=== PATIENT | male | born 1985 | race Caucasian/White ===

== ENCOUNTER 2016-11-01 18:45 | Emergency (ER) | payer OTHER ==
--- NOTE | 2016-11-01 21:17 | ED CLINICAL REPORT ---
Clinical Report - Physicians/Mid Levels [facility] [address] [place] [address] 11/01/2016 18:47 Patient: DESEAN SALAS Time Seen: 19:11; initial patient contact, initial documentation, patient care assumed. Arrived- By private vehicle. Historian- patient. HISTORY OF PRESENT ILLNESS Chief Complaint: SORE THROAT. This started about 2 days ago and is still present. It was abrupt in onset and has been constant. Pain described as severe. The patient has had a sore throat. No mouth sores, nasal discharge or congestion, ear pain or toothache. (trouble swallowing today and feels like he might be having trouble getting air in and out c/o runny nose). Similar symptoms previously: None. Recent medical care: Not recently seen/assessed. REVIEW OF SYSTEMS No fever, cough or difficulty breathing. All systems otherwise negative, except as recorded above. PAST HISTORY See nurses notes. SOCIAL HISTORY Light tobacco smoker. No alcohol use or drug use. No recent travel. Is a local resident. FAMILY HISTORY Negative. ADDITIONAL NOTES The nursing notes have been reviewed with agreement regarding the chief complaint, HPI, ROS, PMH and patient medications and allergies. PHYSICAL EXAM Vital Signs: 11/01/2016 19:12 BP: 150/86. HR: 56. RR: 18. O2 saturation: 100%. Temp: 98.6 F. Pain level now: 10/10. Have been reviewed as normal and appear to be correct. Appearance: Alert. No acute distress. Head: Abnormal external inspection. Mild swelling of the left mandible. Tenderness present to percussion/palpation of the sinuses. No facial erythema. No maxillary swelling. Eyes: Pupils equal, round and reactive to light. Conjunctivae and eyelids normal. No conjunctival findings. ENT: Mild drooling present. Ears normal. Nose normal. Pharynx abnormal. Uvula not midline. Moderate left-sided pharyngeal erythema with left tonsillar swelling and abscess (+4 hypertrophy, fluctulance felt with qtip). No pharyngeal vesicles or ulcerations. No right tonsillar exudate, right tonsillar abscess, right tonsillar swelling, right peritonsillitis, left tonsillar exudate or left peritonsillitis. Mildly muffled/hoarse voice. Lips normal. Gums normal. No trismus present. No mouth ulcerations, tonsillar exudate or peritonsillar mass. The mucous membranes are not dry. (pt unable to open his mouth fully due to pain). Neck: Lymphadenopathy. Normal inspection. Mild right anterior neck and marked left anterior neck and mild left submandibular lymphadenopathy present. Trachea midline. Thyroid normal. Neck supple. CVS: Normal heart rate and rhythm. Heart sounds normal. Pulses normal. Respiratory: No respiratory distress. Breath sounds normal. Chest nontender. Skin: Normal skin color. No rash. Normal skin turgor. Extremities: Extremities exhibit normal ROM. Extremities nontender. Neuro: Oriented X 3. No motor deficit. No sensory deficit. LABS, X-RAYS, AND EKG Laboratory Tests: CBC w Diff: (HILARIA: 11/01/2016 19:45) ( MsgRcvd 11/01/2016 20:25) Final results Test Result Flag Units (Reference) WHITE BLOOD COUNT 26.2 *H K/uL (4.5-11.5) CRITICAL RESULTS CALLEDCalled to ALBION 11/01/161957Were 2 patient identifiers used? YWas the result read back? Y RED BLOOD COUNT 5.10 M/uL (4.50-5.90) HEMOGLOBIN 16.1 gm/dL (13.5-17.5) HEMATOCRIT 47.7 % (41.0-53.0) MEAN CELL VOLUME 93 fL (80-100) MEAN CORPUSCULAR HGB 32 pg (26-34) MEAN CORPUSCULAR HGB CONC 34 g/dL (31-37) RED CELL DISTRIBUTION WIDTH 13.3 % (11.6-14.8) PLATELET COUNT 404 H K/uL (150-400) NEUTROPHIL % 80.5 H % (50-75) LYMPH % 11.4 L % (25-40) MONO % 7.3 % (3-14) EOSINOPHIL % 0.6 % (0-4) BASOPHIL % 0.2 % (0-2) POLY % 77 H % (50-75) BAND % 2 % (0-8) LYMPH 14 L % (25-40) MONO 6 % (3-14) EOSINOPHIL % 1 % (0-4) BASOPHIL % 0 % (0-2) METAMYELOCYTE % 0 % (0-1) MYELOCYTE 0 % (0-1) OTHER CELL TYPE 0 RBC MORPHOLOGY NORMAL Lactate, Serum: (HILARIA: 11/01/2016 20:20) ( [facility] [place] 11/01[place]2016 20:50) Final results Test Result Flag Units (Reference) LACTIC ACID 0.8 mmol/L (0.4-2.0) [id number]: (HILARIA: 11/01/2016 19:45) ( [facility] [place] 11/01/2016 20:47) Final results Test Result Flag Units (Reference) PROCALCITONIN < 0.05 ng/mL (0-0.5) PCT Concentration: Interpretation : Risk/option for action PCT <=0.5 ng/mL : Systemic : Low risk forinfection(sepsis): progression to severeis not likely. : systemic infection.Local bacterial : CAUTION-PCT levelsinfection is : below 0.5 ng/mL do notpossible. : exclude an infection,because localizedinfections (withoutsystemic signs) may beassociated with suchlow levels. If PCT ismeasured very earlyafter a bacterialchallenge (usually <6hours), these valuesmay still be low. Inthis case PCT shouldbe re-assessed 6-24hours later. PCT >0.5 and : Systemic infection: Moderate risk for<= 2 ng/mL : (sepsis) is : progression to severepossible, but : systemic infection.other conditions : The patient should beare known to : closely monitoredelevate PCT. : both clinically andby re-assessing PCTwithin 6-24 hours. PCT > 2 ng/mL : Systemic infection: High risk for(sepsis) is likely: progression to severeunless other : systemic infection.causes are known. : PCT >= 10 ng/mL : Important systemic: High likelihood ofinflammatory : severe sepsis orresponse, almost : septic shock.exclusively due to:severe bacterial :sepsis or septic :shock. : CMP: (HILARIA: 11/01/2016 19:45) ( MsgRcvd 11/01/2016 20:19) Final results Test Result Flag Units (Reference) GLUCOSE 112 H mg/dL (70-110) BUN 9 mg/dL (7-18) CREATININE 0.9 mg/dL (0.6-1.3) Estimated GFR >60 mL/min Estimated GFR- >60 mL/min Note: Persistent reduction over 3 months in eGFR<60 mL/min/1.73 m2 defines CKD. Patients with eGFR values>=60 mL/min/1.73 m2 may also have CKD if evidence ofpersistent proteinuria. Additional information may be foundat www.[email or web address].org. SODIUM 140 mmol/L (136-145) POTASSIUM 3.9 mmol/L (3.5-5.1) CHLORIDE 102 mmol/L (98-107) CARBON DIOXIDE 27 mmol/L (21-32) CALCIUM 9.2 mg/dL (8.5-10.1) TOTAL PROTEIN 8.5 H g/dL (6.4-8.2) ALBUMIN 3.7 g/dL (3.3-5.0) BILIRUBIN, TOTAL 0.7 mg/dL (0.0-1.0) ALKALINE PHOSPHATASE 79 U/L (46-116) AST (SGOT) 11 L U/L (15-37) ALT (SGPT) 17 U/L (12-78) . PROGRESS AND PROCEDURES Course of Care: 19:38 11/01/16. ran pt's case by Dr Pacheco asked screening representative to call ent education officer 19:44 11/01/16. Dr Gan's recommendation: iv steroids, 2L iv fluid bolus, iv abx, pain meds and he will see pt in his office tomorrow am, expressed concerns over size of abscess and worried that pt would not do good waiting til morning 2109. Spoke to Dr Gan again re concerns for size of abscess, potential airway compromise, and wanting to admit, and Karen accept, but ent needs to drain it, Dr Gan asked me to drain it, told him no, and neither would Dr. Pacheco, he then agreed to come in 2134. at bedside with Dr Jones, tonsil even bigger and now there is uvula deviation 21:44 11/01/16. Dr Gan, ENT now present 2199. Dr Gan at bedside doing tonsil I&D drainage 2209. discussed dc plan with Dr Gan and pt, pt still using yankur suction, 60ml initial purulent dc thru suction and now at 120ml pt stated he felt better and thanked me 14:40 11/02/16. Called pt, spoke to spouse, wanted to see how pt was doing today, pt is doing remarkably better, he did not get his rx filled due to money, informed her I was adding steroid rx, but if they could get filled whatever they could, that would be best, and with his pcn allergy we were limited on what type of abx we did based on his infection, she verbalized understanding, and thanked me for all the care, phone lost connection at that point Called in prednisone rx to [facility] per her request. 2100. Physical exam findings are worsened. Alert. Oriented X3. No acute distress. Breath sounds normal. No respiratory distress. Skin warm and dry. Oriented X 3. ( abscess appears larger and uvula is now also swollen). Discussed case with on-call health care provider, (call returned 19:43 dr gan). Reviewed test results. Agreed upon treatment plan. Orders dictated to me. Health care provider will see patient in office. Call placed to on-call health care provider call returned 2 Dr Jones expressed my concerns over the abscess and dc'ing pt home, agreed to admit but wants ent in here to drain it tonight. Patient counseled in person regarding the patient's stable condition, test results and diagnosis. 20:55. Differential Diagnosis: Other possible considerations: pharyngitis, mono, tonsillar abscess. Above considerations are based on history, physical exam, reassessment and laboratory data. Differential diagnosis was discussed with patient and patient's spouse. Disposition: Admitted to Acute Care. 21:17. Discharged home in good and improved condition (22:17). Condition: good and stable. CLINICAL IMPRESSION Left peritonsillar abscess with airway obstruction. INSTRUCTIONS Alternate Tylenol (Acetaminophen) and Motrin (Ibuprofen) for fever, temperature greater than 101 degrees orally. Take according to label instructions. Drink plenty of fluids. Warnings: GENERAL WARNINGS: Return or contact your physician immediately if your condition worsens or changes unexpectedly, if not improving as expected, or if other problems arise. Specifically return if problem worsens. Prescription Medications: Zofran 4 mg: Take 1 orally every six hours as needed for nausea/vomiting. Dispense ten (10). No refills. Substitution is permissible. Prednisone 20 mg: for 10 days. Dispense sufficient quantity. No refills. (60mg day 1-3, 40mg day 4-6, 20mg day 7,8,9&10) Cleocin 300 mg: take 1 capsule orally every 6 hours for 7 days. No refills. Substitution is permissible. [place] 5 mg / 325 mg tablets: take 1 orally every 6 hours as needed for pain. Dispense thirty (30). No refill. Motrin 600 mg tablets: take 1 tablet orally every 6 hours as needed for pain or fever. Dispense thirty (30). No refill. Understanding of the discharge instructions verbalized by patient. Follow-up with: Henri Gan MD, ENT, , [facility], [address] [place] [address], [facility], [id number] Follow up even if well. Call for an appointment. Summary of care provided to patient and family. (Electronically signed by Selina Marin A.R.N.P. 11/02/2016 14:44)
--- NOTE | 2016-11-01 21:17 | ED ORDER SUMMARY ---
..... Patient: DESEAN SALAS OrderSheet [facility] VisitID: [id number] [place] [address] 30y, M Registration Date/Time: 11/01/2016 ORDER SHEET Weight: 104.3 kg Allergies: Penicillins GENERAL ORDERS: CBC w Diff Urgent (19:38 11/01/2016 HBivens A.R.N.P.) (Ack 19:43 SRedmond) (19:49 TBowen R.N.) CMP Urgent (19:38 11/01/2016 HBivens A.R.N.P.) (Ack 19:43 SRedmond) (19:49 TBowen R.N.) Lactate, Serum Urgent (19:58 11/01/2016 HBivens A.R.N.P.) (Ack 20:00 SRedmond) (20:26 LMuller) PCT (Procalcitonin) Urgent (19:58 11/01/2016 HBivens A.R.N.P.) (Ack 20:00 SRedmond) (20:26 LMuller) MEDICATION ORDERS: IV FLUIDS: IV NS : initial bolus 1000 mL (1000 mL/hr), then none - (NOW) (19:38 11/01/2016 HBivens A.R.N.P.) (19:50 TBowen R.N.) Decadron IV 20mg (NOW) (19:38 11/01/2016 HBivens A.R.N.P.) (19:58 TBowen R.N.) IV Saline Lock (19:38 11/01/2016 HBivens A.R.N.P.) (19:50 TBowen R.N.) IV NS : initial bolus 1000 mL (1000 mL/hr), then none - (NOW) (19:41 11/01/2016 HBivens A.R.N.P.) (Ack 20:18 EInderbitzen R.N.) (20:32 TBowen R.N.) Clindamycin IV 900 mg/50mL (NOW) (19:42 11/01/2016 HBivens A.R.N.P.) (19:59 TBowen R.N.) Toradol IV 30 mg (NOW) (20:54 11/01/2016 HBivens A.R.N.P.) (21:00 TBowen R.N.) Dilaudid IV 1 mg (HIGH ALERT MEDICATION, NOW) (20:54 11/01/2016 HBivens A.R.N.P.) (21:00 TBowen R.N.) ORDER SHEET NOTES: [Electronically signed by Deborah Ron R.N. (22:53 11/01/2016)] [Electronically signed by Selina MarinN.PAlicia (14:44 11/02/2016)] [Electronically locked/signed by Deborah Ron R.N. (22:53 11/01/2016)]
--- NOTE | 2016-11-01 21:17 | ED NURSING NOTES ---
Clinical Report - Nurses [facility] [address] [place] [address] 11/01/2016 18:47 Patient: DESEAN SALAS TRIAGE Triage time 19:13. Acuity: LEVEL 4. Chief Complaint: SORE THROAT. Alert. --19:15 TongwenB, R.N. 19:12 11/01/16. BP: 150/86. HR: 56. RR: 18. O2 saturation: 100%. Temp: 98.6 F. Pain level now: 05/07. --19:15 DeborahB, R.N. Weight: 104.3 kg. Height/Length: 75 inches. BMI: 28.7. --19:14 TonyaB, R.N. Medications None. --19:13 eDnise R.N. Allergies Penicillins. --19:13 Denise R.N. History Arrived by private vehicle. Historian: patient. Accompanied by family. ( pt complains of swelling in his throat and throat pain). This started yesterday. Treatment RADIO INTERFERENCE EXPERT: None. PAST MEDICAL HX: Immunizations: up-to-date. SOCIAL HX: Smoker- current status unknown. No alcohol use or drug use. No infectious disease exposure. SELF HARM ASSESSMENT: A self harm assessment was performed. The patient answered "no" to the question "Have you recently felt down, depressed, or hopeless?", "Have you noticed less interest or pleasure in doing things?", "Do you have thoughts of harming or killing yourself?", "Are you here because you tried to hurt yourself?", "Have you ever tried to hurt yourself before today?", "Have you recently had thoughts about harming or killing others?" and "Do you have any dangerous items in your possession?". FALL RISK ASSESSMENT: Fall risk assessment completed. No fall risk identified. NUTRITIONAL RISK ASSESSMENT: The nutritional risk assessment revealed no deficiencies. FUNCTIONAL ASSESSMENT: Functional assessment: no impairments noted. LEARNING NEEDS ASSESSMENT: The learning needs assessment revealed no barriers. SKIN INTEGRITY ASSESSMENT: Skin integrity risk assessment completed. No skin integrity risk identified. --19:15 Rhonda Walker. SOCIAL HX: Light tobacco smoker. --21:06 Rhonda Walker. PROBLEMS: Conjunctivitis. Immunizations. Abscess. Healing Abscess. --19:13 Rhonda Walker. ADDITIONAL SURGERIES: Wrist. --19:13 Rhonda Walker. Interventions ID band on patient. To treatment room. --19:15 Lakshmi Walker PHYSICAL ASSESSMENT GENERAL / NEURO / PSYCH: Alert. Oriented X 4. Appears in no acute distress. HEENT: Pupils equal, round and reactive to light. Runny nose. Muffled voice. Mouth within normal limits upon inspection. No dental injury noted. Mucous membranes are pink. RESPIRATORY: Respirations not labored. CVS: Capillary refill less than 2 seconds. SKIN: Skin is warm and dry. Normal skin turgor. --19:16 Rhonda Walker. NURSING PROGRESS NOTES Patient identifiers checked. Call light placed in reach. Side rails up x 1. Bed placed in lowest position. Brakes of bed on. --19:33 Rhonda Walker. Patient gowned. --19:33 Lakshmi Walker 19:50 11/01/2016 Site #1 started via IV in the left antecubital space with an 20g angiocath, with aseptic technique and good blood return; one attempt. Blood drawn: rainbow set. Labeled in the presence of the patient and sent to the lab. --19:50 Lakshmi Walker 19:50 11/01/2016 Started bag #1 1000 mL IV Fluids IV NS (Saline); at 1000 mL/hr over 1 hour(s) via site #1 via dial-a-flow. Allergies verified and confirmed 5 rights. IV patency established. IV site checked: no pain, redness, or swelling. IV flushed thoroughly pre- and post-medication administration. --19:50 Lakshmi Walker 19:58 11/01/2016 Decadron IVP 20 mg given over 2 minute(s) via site #1. Allergies verified and confirmed 5 rights. IV patency established. IV site checked: no pain, redness, or swelling. IV flushed thoroughly pre- and post-medication administration. IVP given by RN. --19:58 Lakshmi Walker 19:59 11/01/2016 Started 900 mg of Clindamycin IVPB; at 50 mL/hr over 30 minute(s) via site #1 via IV pump. Allergies verified and confirmed 5 rights. IV patency established. IV site checked: no pain, redness, or swelling. IV flushed thoroughly pre- and post-medication administration. --19:59 Lakshmi Walker Critical value relayed to ED by akosua. Critical value received by vinny. WBC: 26.2. Critical value read back. Verified lab result and patient ID. PA notifed of critical value. Orders were received. --20:02 Lakshmi Walker 20:31 11/01/2016 IV Fluids IV NS Discontinued: bag #1 infused upon discharge. Total amount infused: 1000 mL. --20:31 Kimberly Palacio R.N. 20:32 11/01/2016 Started bag #1 1000 mL IV Fluids IV NS (Saline); at 1000 mL/hr over 1 hour(s) via site #1 via IV pump. Allergies verified and confirmed 5 rights. IV patency established. IV site checked: no pain, redness, or swelling. IV flushed thoroughly pre- and post-medication administration. --20:32 Lakshmi Walker 20:33 11/01/2016 Clindamycin IVPB Discontinued: bag #1 completed. Total amount infused: 50 mL. IV patency established. IV site checked: no pain, redness, or swelling. IV flushed thoroughly. --20:33 Lakshmi Walker 20:59 11/01/2016 IV Fluids IV NS Discontinued: bag #2 completed. Total amount infused: 1000 mL. IV patency established. IV site checked: no pain, redness, or swelling. IV flushed thoroughly. --20:59 Lakshmi Walker 21:00 11/01/2016 Toradol IVP 30 mg given over 2 minute(s) via site #1. Allergies verified and confirmed 5 rights. IV patency established. IV site checked: no pain, redness, or swelling. IV flushed thoroughly pre- and post-medication administration. IVP given by RN. --21:00 Lakshmi Walker 21:00 11/01/2016 Dilaudid (HYDROmorphone HCl PF) IVP 1 mg given. via site #1. Allergies verified, confirmed 5 rights and sedative warning given to the patient and patient's family. IV patency established. IV site checked: no pain, redness, or swelling. IV flushed thoroughly pre- and post-medication administration. IVP given by RN. --21:00 Lakshmi Walker Reassessment after fluids administered. He is resting quietly. --21:07 Lakshmi Walker 21:23 11/01/16. BP: 149/85. HR: 76. RR: 16. O2 saturation: 97%. Pain level now: 5/10. --21:24 Lakshmi Walker Patient ID band checked for patient name and birthdate: patient confirmed. Throat swab obtained for culture; labeled in the presence of the patient and sent to lab. --22:03 Lakshmi Walker ( assisted MD with lancing of tonsil abcess). --22:04 Lakshmi Walker DISPOSITION / DISCHARGE 22:51 11/01/2016 Site #1 removed upon discharge. Catheter intact. Bandaid applied. --22:52 Lakshmi Walker Departure time: 22:53. Condition at departure: improved. No learning barriers present. Discharge instructions provided and reviewed with the patient. Reviewed medication(s) side effects, precautions, dosing and course information. Prescription(s) given to the patient. Reviewed referral to an ear, nose, and throat specialist (daytime caregiver). Follow up contact number. Patient verbalized understanding. Written instructions provided in Vietnamese. No warning instructions, diet instructions, activity restrictions, note given or stop smoking instructions. The patient was discharged by the physician land surveyor assistant. He was discharged home and accompanied by parent. He left the Emergency Department ambulatory and via private vehicle. Family member driving. FALL RISK ASSESSMENT: Fall risk assessment completed. No fall risk identified. --22:53 Lakshmi Walker 22:51 11/01/16. BP: 128/94. HR: 71. RR: 18. O2 saturation: 100%. Temp: 98.4 F. Pain level now: 4/10. --22:53 Lakshmi Walker Locked/Released at 11/01/2016 22:53 by Lakshmi Walker
--- NOTE | 2016-11-01 21:17 | ED NURSING NOTES ---
Clinical Report - Nurses [facility] [address] [place] [address] 11/01/2016 18:47 Patient: DESEAN SALAS TRIAGE Triage time 19:13. Acuity: LEVEL 4. Chief Complaint: SORE THROAT. Alert. --19:15 TongwenB, R.N. 19:12 11/01/16. BP: 150/86. HR: 56. RR: 18. O2 saturation: 100%. Temp: 98.6 F. Pain level now: 05/07. --19:15 DeborahB, R.N. Weight: 104.3 kg. Height/Length: 75 inches. BMI: 28.7. --19:14 TonyaB, R.N. Medications None. --19:13 Denise R.N. Allergies Penicillins. --19:13 Denise R.N. History Arrived by private vehicle. Historian: patient. Accompanied by family. ( pt complains of swelling in his throat and throat pain). This started yesterday. Treatment IRRIGATOR GRAVITY FLOW: None. PAST MEDICAL HX: Immunizations: up-to-date. SOCIAL HX: Smoker- current status unknown. No alcohol use or drug use. No infectious disease exposure. SELF HARM ASSESSMENT: A self harm assessment was performed. The patient answered "no" to the question "Have you recently felt down, depressed, or hopeless?", "Have you noticed less interest or pleasure in doing things?", "Do you have thoughts of harming or killing yourself?", "Are you here because you tried to hurt yourself?", "Have you ever tried to hurt yourself before today?", "Have you recently had thoughts about harming or killing others?" and "Do you have any dangerous items in your possession?". FALL RISK ASSESSMENT: Fall risk assessment completed. No fall risk identified. NUTRITIONAL RISK ASSESSMENT: The nutritional risk assessment revealed no deficiencies. FUNCTIONAL ASSESSMENT: Functional assessment: no impairments noted. LEARNING NEEDS ASSESSMENT: The learning needs assessment revealed no barriers. SKIN INTEGRITY ASSESSMENT: Skin integrity risk assessment completed. No skin integrity risk identified. --19:15 Rhonda Walker. SOCIAL HX: Light tobacco smoker. --21:06 Rhonda Walker. PROBLEMS: Conjunctivitis. Immunizations. Abscess. Healing Abscess. --19:13 Rhonda Walker. ADDITIONAL SURGERIES: Wrist. --19:13 Rhonda Walker. Interventions ID band on patient. To treatment room. --19:15 Lakshmi Walker PHYSICAL ASSESSMENT GENERAL / NEURO / PSYCH: Alert. Oriented X 4. Appears in no acute distress. HEENT: Pupils equal, round and reactive to light. Runny nose. Muffled voice. Mouth within normal limits upon inspection. No dental injury noted. Mucous membranes are pink. RESPIRATORY: Respirations not labored. CVS: Capillary refill less than 2 seconds. SKIN: Skin is warm and dry. Normal skin turgor. --19:16 Rhonda Walker. NURSING PROGRESS NOTES Patient identifiers checked. Call light placed in reach. Side rails up x 1. Bed placed in lowest position. Brakes of bed on. --19:33 Rhonda Walker. Patient gowned. --19:33 Lakshmi Walker 19:50 11/01/2016 Site #1 started via IV in the left antecubital space with an 20g angiocath, with aseptic technique and good blood return; one attempt. Blood drawn: rainbow set. Labeled in the presence of the patient and sent to the lab. --19:50 Lakshmi Walker 19:50 11/01/2016 Started bag #1 1000 mL IV Fluids IV NS (Saline); at 1000 mL/hr over 1 hour(s) via site #1 via dial-a-flow. Allergies verified and confirmed 5 rights. IV patency established. IV site checked: no pain, redness, or swelling. IV flushed thoroughly pre- and post-medication administration. --19:50 Lakshmi Walker 19:58 11/01/2016 Decadron IVP 20 mg given over 2 minute(s) via site #1. Allergies verified and confirmed 5 rights. IV patency established. IV site checked: no pain, redness, or swelling. IV flushed thoroughly pre- and post-medication administration. IVP given by RN. --19:58 Lakshmi Walker 19:59 11/01/2016 Started 900 mg of Clindamycin IVPB; at 50 mL/hr over 30 minute(s) via site #1 via IV pump. Allergies verified and confirmed 5 rights. IV patency established. IV site checked: no pain, redness, or swelling. IV flushed thoroughly pre- and post-medication administration. --19:59 Lakshmi Walker Critical value relayed to ED by akosua. Critical value received by vinny. WBC: 26.2. Critical value read back. Verified lab result and patient ID. PA notifed of critical value. Orders were received. --20:02 Lakshmi Walker 20:31 11/01/2016 IV Fluids IV NS Discontinued: bag #1 infused upon discharge. Total amount infused: 1000 mL. --20:31 Kimberly Palacio R.N. 20:32 11/01/2016 Started bag #1 1000 mL IV Fluids IV NS (Saline); at 1000 mL/hr over 1 hour(s) via site #1 via IV pump. Allergies verified and confirmed 5 rights. IV patency established. IV site checked: no pain, redness, or swelling. IV flushed thoroughly pre- and post-medication administration. --20:32 Lakshmi Walker 20:33 11/01/2016 Clindamycin IVPB Discontinued: bag #1 completed. Total amount infused: 50 mL. IV patency established. IV site checked: no pain, redness, or swelling. IV flushed thoroughly. --20:33 Lakshmi Walker 20:59 11/01/2016 IV Fluids IV NS Discontinued: bag #2 completed. Total amount infused: 1000 mL. IV patency established. IV site checked: no pain, redness, or swelling. IV flushed thoroughly. --20:59 Lakshmi Walker 21:00 11/01/2016 Toradol IVP 30 mg given over 2 minute(s) via site #1. Allergies verified and confirmed 5 rights. IV patency established. IV site checked: no pain, redness, or swelling. IV flushed thoroughly pre- and post-medication administration. IVP given by RN. --21:00 Lakshmi Walker 21:00 11/01/2016 Dilaudid (HYDROmorphone HCl PF) IVP 1 mg given. via site #1. Allergies verified, confirmed 5 rights and sedative warning given to the patient and patient's family. IV patency established. IV site checked: no pain, redness, or swelling. IV flushed thoroughly pre- and post-medication administration. IVP given by RN. --21:00 Lakshmi Walker Reassessment after fluids administered. He is resting quietly. --21:07 Lakshmi Walker 21:23 11/01/16. BP: 149/85. HR: 76. RR: 16. O2 saturation: 97%. Pain level now: 5/10. --21:24 Lakshmi Walker Patient ID band checked for patient name and birthdate: patient confirmed. Throat swab obtained for culture; labeled in the presence of the patient and sent to lab. --22:03 Lakshmi Walker ( assisted MD with lancing of tonsil abcess). --22:04 Laksmhi Walker DISPOSITION / DISCHARGE 22:51 11/01/2016 Site #1 removed upon discharge. Catheter intact. Bandaid applied. --22:52 Lakshmi Walker Departure time: 22:53. Condition at departure: improved. No learning barriers present. Discharge instructions provided and reviewed with the patient. Reviewed medication(s) side effects, precautions, dosing and course information. Prescription(s) given to the patient. Reviewed referral to an ear, nose, and throat specialist (senior court office assistant). Follow up contact number. Patient verbalized understanding. Written instructions provided in [place]. No warning instructions, diet instructions, activity restrictions, note given or stop smoking instructions. The patient was discharged by the physician personnel security assistant. He was discharged home and accompanied by parent. He left the Emergency Department ambulatory and via private vehicle. Family member driving. FALL RISK ASSESSMENT: Fall risk assessment completed. No fall risk identified. --22:53 Lakshmi Walker 22:51 11/01/16. BP: 128/94. HR: 71. RR: 18. O2 saturation: 100%. Temp: 98.4 F. Pain level now: 4/10. --22:53 Lakshmi Walker Locked/Released at 11/01/2016 22:53 by Lakshmi Walker
--- NOTE | 2016-11-01 21:17 | ED ORDER SUMMARY ---
..... Patient: DESEAN SALAS OrderSheet [facility] VisitID: [id number] [place] [address] 30y, M Registration Date/Time: 11/01/2016 ORDER SHEET Weight: 104.3 kg Allergies: Penicillins GENERAL ORDERS: CBC w Diff Urgent (19:38 11/01/2016 HBivens A.R.N.P.) (Ack 19:43 SRedmond) (19:49 TBowen R.N.) CMP Urgent (19:38 11/01/2016 HBivens A.R.N.P.) (Ack 19:43 SRedmond) (19:49 TBowen R.N.) Lactate, Serum Urgent (19:58 11/01/2016 HBivens A.R.N.P.) (Ack 20:00 SRedmond) (20:26 LMuller) PCT (Procalcitonin) Urgent (19:58 11/01/2016 HBivens A.R.N.P.) (Ack 20:00 SRedmond) (20:26 LMuller) MEDICATION ORDERS: IV FLUIDS: IV NS : initial bolus 1000 mL (1000 mL/hr), then none - (NOW) (19:38 11/01/2016 HBivens A.R.N.P.) (19:50 TBowen R.N.) Decadron IV 20mg (NOW) (19:38 11/01/2016 HBivens A.R.N.P.) (19:58 TBowen R.N.) IV Saline Lock (19:38 11/01/2016 HBivens A.R.N.P.) (19:50 TBowen R.N.) IV NS : initial bolus 1000 mL (1000 mL/hr), then none - (NOW) (19:41 11/01/2016 HBivens A.R.N.P.) (Ack 20:18 EInderbitzen R.N.) (20:32 TBowen R.N.) Clindamycin IV 900 mg/50mL (NOW) (19:42 11/01/2016 HBivens A.R.N.P.) (19:59 TBowen R.N.) Toradol IV 30 mg (NOW) (20:54 11/01/2016 HBivens A.R.N.P.) (21:00 TBowen R.N.) Dilaudid IV 1 mg (HIGH ALERT MEDICATION, NOW) (20:54 11/01/2016 HBivens A.R.N.P.) (21:00 TBowen R.N.) ORDER SHEET NOTES: [Electronically signed by Deborah Ron R.N. (22:53 11/01/2016)] [Electronically signed by Selina MarinN.PAlicia (14:44 11/02/2016)] [Electronically locked/signed by Deborah Ron R.N. (22:53 11/01/2016)]
--- NOTE | 2016-11-01 21:17 | ED CLINICAL REPORT ---
Clinical Report - Physicians/Mid Levels [facility] [address] [place] [address] 11/01/2016 18:47 Patient: DESEAN SALAS Time Seen: 19:11; initial patient contact, initial documentation, patient care assumed. Arrived- By private vehicle. Historian- patient. HISTORY OF PRESENT ILLNESS Chief Complaint: SORE THROAT. This started about 2 days ago and is still present. It was abrupt in onset and has been constant. Pain described as severe. The patient has had a sore throat. No mouth sores, nasal discharge or congestion, ear pain or toothache. (trouble swallowing today and feels like he might be having trouble getting air in and out c/o runny nose). Similar symptoms previously: None. Recent medical care: Not recently seen/assessed. REVIEW OF SYSTEMS No fever, cough or difficulty breathing. All systems otherwise negative, except as recorded above. PAST HISTORY See nurses notes. SOCIAL HISTORY Light tobacco smoker. No alcohol use or drug use. No recent travel. Is a local resident. FAMILY HISTORY Negative. ADDITIONAL NOTES The nursing notes have been reviewed with agreement regarding the chief complaint, HPI, ROS, PMH and patient medications and allergies. PHYSICAL EXAM Vital Signs: 11/01/2016 19:12 BP: 150/86. HR: 56. RR: 18. O2 saturation: 100%. Temp: 98.6 F. Pain level now: 10/10. Have been reviewed as normal and appear to be correct. Appearance: Alert. No acute distress. Head: Abnormal external inspection. Mild swelling of the left mandible. Tenderness present to percussion/palpation of the sinuses. No facial erythema. No maxillary swelling. Eyes: Pupils equal, round and reactive to light. Conjunctivae and eyelids normal. No conjunctival findings. ENT: Mild drooling present. Ears normal. Nose normal. Pharynx abnormal. Uvula not midline. Moderate left-sided pharyngeal erythema with left tonsillar swelling and abscess (+4 hypertrophy, fluctulance felt with qtip). No pharyngeal vesicles or ulcerations. No right tonsillar exudate, right tonsillar abscess, right tonsillar swelling, right peritonsillitis, left tonsillar exudate or left peritonsillitis. Mildly muffled/hoarse voice. Lips normal. Gums normal. No trismus present. No mouth ulcerations, tonsillar exudate or peritonsillar mass. The mucous membranes are not dry. (pt unable to open his mouth fully due to pain). Neck: Lymphadenopathy. Normal inspection. Mild right anterior neck and marked left anterior neck and mild left submandibular lymphadenopathy present. Trachea midline. Thyroid normal. Neck supple. CVS: Normal heart rate and rhythm. Heart sounds normal. Pulses normal. Respiratory: No respiratory distress. Breath sounds normal. Chest nontender. Skin: Normal skin color. No rash. Normal skin turgor. Extremities: Extremities exhibit normal ROM. Extremities nontender. Neuro: Oriented X 3. No motor deficit. No sensory deficit. LABS, X-RAYS, AND EKG Laboratory Tests: CBC w Diff: (HILARIA: 11/01/2016 19:45) ( MsgRcvd 11/01/2016 20:25) Final results Test Result Flag Units (Reference) WHITE BLOOD COUNT 26.2 *H K/uL (4.5-11.5) CRITICAL RESULTS CALLEDCalled to [facility] 11/01/161957Were 2 patient identifiers used? YWas the result read back? Y RED BLOOD COUNT 5.10 M/uL (4.50-5.90) HEMOGLOBIN 16.1 gm/dL (13.5-17.5) HEMATOCRIT 47.7 % (41.0-53.0) MEAN CELL VOLUME 93 fL (80-100) MEAN CORPUSCULAR HGB 32 pg (26-34) MEAN CORPUSCULAR HGB CONC 34 g/dL (31-37) RED CELL DISTRIBUTION WIDTH 13.3 % (11.6-14.8) PLATELET COUNT 404 H K/uL (150-400) NEUTROPHIL % 80.5 H % (50-75) LYMPH % 11.4 L % (25-40) MONO % 7.3 % (3-14) EOSINOPHIL % 0.6 % (0-4) BASOPHIL % 0.2 % (0-2) POLY % 77 H % (50-75) BAND % 2 % (0-8) LYMPH 14 L % (25-40) MONO 6 % (3-14) EOSINOPHIL % 1 % (0-4) BASOPHIL % 0 % (0-2) METAMYELOCYTE % 0 % (0-1) MYELOCYTE 0 % (0-1) OTHER CELL TYPE 0 RBC MORPHOLOGY NORMAL Lactate, Serum: (HILARIA: 11/01/2016 20:20) ( [facility] 11/01/2016 20:50) Final results Test Result Flag Units (Reference) LACTIC ACID 0.8 mmol/L (0.4-2.0) [id number]: (HILARIA: 11/01/2016 19:45) ( [facility] [place] 11/01/2016 20:47) Final results Test Result Flag Units (Reference) PROCALCITONIN < 0.05 ng/mL (0-0.5) PCT Concentration: Interpretation : Risk/option for action PCT <=0.5 ng/mL : Systemic : Low risk forinfection(sepsis): progression to severeis not likely. : systemic infection.Local bacterial : CAUTION-PCT levelsinfection is : below 0.5 ng/mL do notpossible. : exclude an infection,because localizedinfections (withoutsystemic signs) may beassociated with suchlow levels. If PCT ismeasured very earlyafter a bacterialchallenge (usually <6hours), these valuesmay still be low. Inthis case PCT shouldbe re-assessed 6-24hours later. PCT >0.5 and : Systemic infection: Moderate risk for<= 2 ng/mL : (sepsis) is : progression to severepossible, but : systemic infection.other conditions : The patient should beare known to : closely monitoredelevate PCT. : both clinically andby re-assessing PCTwithin 6-24 hours. PCT > 2 ng/mL : Systemic infection: High risk for(sepsis) is likely: progression to severeunless other : systemic infection.causes are known. : PCT >= 10 ng/mL : Important systemic: High likelihood ofinflammatory : severe sepsis orresponse, almost : septic shock.exclusively due to:severe bacterial :sepsis or septic :shock. : CMP: (HILARIA: 11/01/2016 19:45) ( MsgRcvd 11/01/2016 20:19) Final results Test Result Flag Units (Reference) GLUCOSE 112 H mg/dL (70-110) BUN 9 mg/dL (7-18) CREATININE 0.9 mg/dL (0.6-1.3) Estimated GFR >60 mL/min Estimated GFR- >60 mL/min Note: Persistent reduction over 3 months in eGFR<60 mL/min/1.73 m2 defines CKD. Patients with eGFR values>=60 mL/min/1.73 m2 may also have CKD if evidence ofpersistent proteinuria. Additional information may be foundat www.kidney.org. SODIUM 140 mmol/L (136-145) POTASSIUM 3.9 mmol/L (3.5-5.1) CHLORIDE 102 mmol/L (98-107) CARBON DIOXIDE 27 mmol/L (21-32) CALCIUM 9.2 mg/dL (8.5-10.1) TOTAL PROTEIN 8.5 H g/dL (6.4-8.2) ALBUMIN 3.7 g/dL (3.3-5.0) BILIRUBIN, TOTAL 0.7 mg/dL (0.0-1.0) ALKALINE PHOSPHATASE 79 U/L (46-116) AST (SGOT) 11 L U/L (15-37) ALT (SGPT) 17 U/L (12-78) . PROGRESS AND PROCEDURES Course of Care: 19:38 11/01/16. ran pt's case by Dr Pacheco asked product managent intern to call ent inside solar sales consultant 19:44 11/01/16. Dr Gan's recommendation: iv steroids, 2L iv fluid bolus, iv abx, pain meds and he will see pt in his office tomorrow am, expressed concerns over size of abscess and worried that pt would not do good waiting til morning 2109. Spoke to Dr Gan again re concerns for size of abscess, potential airway compromise, and wanting to admit, and Karen accept, but ent needs to drain it, Dr Gan asked me to drain it, told him no, and neither would Dr. Pacheco, he then agreed to come in 2134. at bedside with Dr Jones, tonsil even bigger and now there is uvula deviation 21:44 11/01/16. Dr Gan, ENT now present 2199. Dr Gan at bedside doing tonsil I&D drainage 2209. discussed dc plan with Dr Gan and pt, pt still using yankur suction, 60ml initial purulent dc thru suction and now at 120ml pt stated he felt better and thanked me 14:40 11/02/16. Called pt, spoke to spouse, wanted to see how pt was doing today, pt is doing remarkably better, he did not get his rx filled due to money, informed her I was adding steroid rx, but if they could get filled whatever they could, that would be best, and with his pcn allergy we were limited on what type of abx we did based on his infection, she verbalized understanding, and thanked me for all the care, phone lost connection at that point Called in prednisone rx to [facility] per her request. 2100. Physical exam findings are worsened. Alert. Oriented X3. No acute distress. Breath sounds normal. No respiratory distress. Skin warm and dry. Oriented X 3. ( abscess appears larger and uvula is now also swollen). Discussed case with on-call health care provider, (call returned 19:43 dr gan). Reviewed test results. Agreed upon treatment plan. Orders dictated to me. Health care provider will see patient in office. Call placed to on-call health care provider call returned 0 Dr Jones expressed my concerns over the abscess and dc'ing pt home, agreed to admit but wants ent in here to drain it tonight. Patient counseled in person regarding the patient's stable condition, test results and diagnosis. 20:55. Differential Diagnosis: Other possible considerations: pharyngitis, mono, tonsillar abscess. Above considerations are based on history, physical exam, reassessment and laboratory data. Differential diagnosis was discussed with patient and patient's spouse. Disposition: Admitted to Acute Care. 21:17. Discharged home in good and improved condition (22:17). Condition: good and stable. CLINICAL IMPRESSION Left peritonsillar abscess with airway obstruction. INSTRUCTIONS Alternate Tylenol (Acetaminophen) and Motrin (Ibuprofen) for fever, temperature greater than 101 degrees orally. Take according to label instructions. Drink plenty of fluids. Warnings: GENERAL WARNINGS: Return or contact your physician immediately if your condition worsens or changes unexpectedly, if not improving as expected, or if other problems arise. Specifically return if problem worsens. Prescription Medications: Zofran 4 mg: Take 1 orally every six hours as needed for nausea/vomiting. Dispense ten (10). No refills. Substitution is permissible. Prednisone 20 mg: for 10 days. Dispense sufficient quantity. No refills. (60mg day 1-3, 40mg day 4-6, 20mg day 7,8,9&10) Cleocin 300 mg: take 1 capsule orally every 6 hours for 7 days. No refills. Substitution is permissible. [place] 5 mg / 325 mg tablets: take 1 orally every 6 hours as needed for pain. Dispense thirty (30). No refill. Motrin 600 mg tablets: take 1 tablet orally every 6 hours as needed for pain or fever. Dispense thirty (30). No refill. Understanding of the discharge instructions verbalized by patient. Follow-up with: Henri Gan MD, ENT, , [facility], [address] [place] [address], [facility], [id number] Follow up even if well. Call for an appointment. Summary of care provided to patient and family. (Electronically signed by Selina Marin A.R.N.P. 11/02/2016 14:44)
--- NOTE | 2016-11-01 21:50 | Progress Note ---
Subjective General ER consultation Patient Name: Kraig López Emergency Room Evaluation Date: November 01, 2016 Primary Care Provider: None Consulting Physician: Vikash Jones M.D. Requesting Provider: Selina STEELE Code Status: FULL CODE ER Room: 13 Reason for Consultation: Evaluation and treatment of peritonsillar abscess SUBJECTIVE Historian: Patient and family Reliability: Good Chief Complaint: Left peritonsillar abscess History of Present Illness: The patient is a 30-year-old white male with no significant past medical history who presented to [facility] emergency department on November 01, 2016 secondary to complaints of sore throat and difficulty swallowing. [facility] ER evaluation was consistent with left-sided peritonsillar abscess. I was consulted for evaluation and admission of the patient pending ENT evaluation by Dr. Henri Gan. The history of present illness began 1-2 days prior to admission when the patient developed sore throat. This progressed to becoming severe with associated difficulty swallowing and problems opening his mouth. The patient subsequently presented for ER evaluation today. Findings were consistent with left-sided peritonsillar abscess. I was consulted for admission the patient pending ENT evaluation. PAST MEDICAL HISTORY Illnesses: 1. None Allergies: 1. Penicillin Medications: 1. None Surgery: 1. 2008 foot surgery 2. 2008 hand surgery Injuries: 1. No significant Hospitalizations: 1. None FAMILY HISTORY Parents: 1. Father, Lai, , 40, cause unknown, 2. Mother, , 60, cancer-gastric Siblings: 1. The patient has 5 siblings all of which are in good health Children: 1. Male, [place], living, 5, healthy Other significant family history: None SOCIAL HISTORY 1. Marital Status: Single 2. Oriental Orthodox: None 3. Education: High school 4. Employment History: [employer], 12 years 5. Occupational health exposures: Loud noises, heavy lifting HABITS 1. Tobacco: Patient currently smokes cigarettes, amount unknown 2. Drugs: None 3. Alcohol: None 4. Caffeine: None HEALTH SUPERVISION Item/Test 1. No recent health supervision/maintenance IMMUNIZATIONS: 1. Pneumococcal: No previous 2. Influenza: No recent 3. Tetanus: 2014 ADVANCED DIRECTIVES: 1. Living well: No 2. POLST: No 3. Code Status: FULL CODE 4. Durable Power Recruitment Coordinator Health care: No 5. Donor card: No REVIEW OF SYSTEMS Remarkable for those things stated in the history of present illness and past medical history. Seventeen point review of system completed with the following notable findings: Remarkable for those things stated in the history of present was and past medical history otherwise noncontributory Physical Exam Vital Signs / I&Os Blood pressure: 150/86 mmHg Heart rate: 56/minute Respiratory rate: 18/minute Temperature: 98.6 Fahrenheit orally Pulse oximetry: 100% room air General Appearance Oriented X3, Cooperative, Mild distress, Slightly lethargic HEENT Atraumatic, PERRLA, EOMI, patient with significant left-sided peritonsillar abscess with swelling and deviation of uvula to right side Lungs Clear to auscultation, Normal air movement Cardiovascular Regular rate and rhythm, Normal S1 and S2, No murmurs, gallops, rubs Abdomen Normal bowel sounds, Soft, No tenderness Extremities No cyanosis, No clubbing, No edema Neurological Grossly normal Psych/Mental Status Mental status normal, Mood normal LAB Results Laboratory Tests 11/01 Chemistry Plasma Sodium (136 - 145 mmol/L) 140 Plasma Potassium (3.5 - 5.1 mmol/L) 3.9 Plasma Chloride (98 - 107 mmol/L) 102 CO2 (Enzymatic) (21 - 32 mmol/L) 27 BUN (7 - 18 mg/dL) 9 Creatinine (0.6 - 1.3 mg/dL) 0.9 Est GFR ( Amer) (mL/min) >60 Est GFR (Non-Af Amer) (mL/min) >60 Glucose (70 - 110 mg/dL) 112 Lactic Acid (0.4 - 2.0 mmol/L) 0.8 Plasma Calcium (8.5 - 10.1 mg/dL) 9.2 Total Bilirubin (0.0 - 1.0 mg/dL) 0.7 AST (15 - 37 U/L) 11 ALT (12 - 78 U/L) 17 Alkaline Phosphatase (46 - 116 U/L) 79 Total Protein (6.4 - 8.2 g/dL) 8.5 Albumin (3.3 - 5.0 g/dL) 3.7 Procalcitonin (0 - 0.5 ng/mL) < 0.05 Hematology WBC (4.5 - 11.5 K/uL) 26.2 RBC (4.50 - 5.90 M/uL) 5.10 Hgb (13.5 - 17.5 gm/dL) 16.1 Hct (41.0 - 53.0 %) 47.7 MCV (80 - 100 fL) 93 MCH (26 - 34 pg) 32 RDW (11.6 - 14.8 %) 13.3 Neut % (Auto) (50 - 75 %) 77 Lymph % (Auto) (25 - 40 %) 14 [place] % (Auto) (3 - 14 %) 6 Eos % (Auto) (0 - 4 %) 1 Baso % (Auto) (0 - 2 %) 0 Band Neutrophils % (0 - 8 %) 2 Metamyelocytes % (0 - 1 %) 0 Myelocytes (0 - 1 %) 0 Other Cell Type 0 Plt Count, EDTA (150 - 400 K/uL) 404 RBC Morphology NORMAL PUBS MCHC (31 - 37 g/dL) 34 Assessment and Plan Problem List 1. Peritonsillar abscess Status Acute Onset Date Unknown Plan -Patient with findings of left-sided peritonsillar abscess -Dr. Henri Gan consulted -Patient underwent incision and drainage of left-sided peritonsillar abscess by Dr. Gan in the emergency department -Dr. Gan stated patient can be safely discharged home with outpatient follow -up with him. Recommends clindamycin and prednisone taper. -Selina STEELE will arrange for antimicrobial therapy and prednisone taper. -Patient status much improved status post drainage of left-sided peritonsillar abscess. -Follow per Dr. Henri Gan's recommendations Current status: Fair, improved Anticipated discharge date: Today from emergency department Anticipated discharge placement: Home Patient care time: Time spent in chart review, patient interview, physical exam, and care documentation: 45 minutes Visit to patient today: 1 Complexity of care: Moderate E&M Codes Outpatient Consult: Comp-Moderate/[id number]
--- NOTE | 2016-11-01 21:50 | Progress Note ---
Subjective General ER consultation Patient Name: Kraig López Emergency Room Evaluation Date: November 01, 2016 Primary Care Provider: None Consulting Physician: Vikash Jones M.D. Requesting Provider: Selina STEELE Code Status: FULL CODE ER Room: 13 Reason for Consultation: Evaluation and treatment of peritonsillar abscess SUBJECTIVE Historian: Patient and family Reliability: Good Chief Complaint: Left peritonsillar abscess History of Present Illness: The patient is a 30-year-old white male with no significant past medical history who presented to [facility] emergency department on November 01, 2016 secondary to complaints of sore throat and difficulty swallowing. [facility] ER evaluation was consistent with left-sided peritonsillar abscess. I was consulted for evaluation and admission of the patient pending ENT evaluation by Dr. Henri Gan. The history of present illness began 1-2 days prior to admission when the patient developed sore throat. This progressed to becoming severe with associated difficulty swallowing and problems opening his mouth. The patient subsequently presented for ER evaluation today. Findings were consistent with left-sided peritonsillar abscess. I was consulted for admission the patient pending ENT evaluation. PAST MEDICAL HISTORY Illnesses: 1. None Allergies: 1. Penicillin Medications: 1. None Surgery: 1. 2008 foot surgery 2. 2008 hand surgery Injuries: 1. No significant Hospitalizations: 1. None FAMILY HISTORY Parents: 1. Father, Lai, , 40, cause unknown, 2. Mother, , 60, cancer-gastric Siblings: 1. The patient has 5 siblings all of which are in good health Children: 1. Male, [place], living, 5, healthy Other significant family history: None SOCIAL HISTORY 1. Marital Status: Single 2. Hoahaoism: None 3. Education: High school 4. Employment History: [employer], 12 years 5. Occupational health exposures: Loud noises, heavy lifting HABITS 1. Tobacco: Patient currently smokes cigarettes, amount unknown 2. Drugs: None 3. Alcohol: None 4. Caffeine: None HEALTH SUPERVISION Item/Test 1. No recent health supervision/maintenance IMMUNIZATIONS: 1. Pneumococcal: No previous 2. Influenza: No recent 3. Tetanus: 2014 ADVANCED DIRECTIVES: 1. Living well: No 2. POLST: No 3. Code Status: FULL CODE 4. Durable Power Girls Swimming Coach Health care: No 5. Donor card: No REVIEW OF SYSTEMS Remarkable for those things stated in the history of present illness and past medical history. Seventeen point review of system completed with the following notable findings: Remarkable for those things stated in the history of present was and past medical history otherwise noncontributory Physical Exam Vital Signs / I&Os Blood pressure: 150/86 mmHg Heart rate: 56/minute Respiratory rate: 18/minute Temperature: 98.6 Fahrenheit orally Pulse oximetry: 100% room air General Appearance Oriented X3, Cooperative, Mild distress, Slightly lethargic HEENT Atraumatic, PERRLA, EOMI, patient with significant left-sided peritonsillar abscess with swelling and deviation of uvula to right side Lungs Clear to auscultation, Normal air movement Cardiovascular Regular rate and rhythm, Normal S1 and S2, No murmurs, gallops, rubs Abdomen Normal bowel sounds, Soft, No tenderness Extremities No cyanosis, No clubbing, No edema Neurological Grossly normal Psych/Mental Status Mental status normal, Mood normal LAB Results Laboratory Tests 11/01 Chemistry Plasma Sodium (136 - 145 mmol/L) 140 Plasma Potassium (3.5 - 5.1 mmol/L) 3.9 Plasma Chloride (98 - 107 mmol/L) 102 CO2 (Enzymatic) (21 - 32 mmol/L) 27 BUN (7 - 18 mg/dL) 9 Creatinine (0.6 - 1.3 mg/dL) 0.9 Est GFR ( Amer) (mL/min) >60 Est GFR (Non-Af Amer) (mL/min) >60 Glucose (70 - 110 mg/dL) 112 Lactic Acid (0.4 - 2.0 mmol/L) 0.8 Plasma Calcium (8.5 - 10.1 mg/dL) 9.2 Total Bilirubin (0.0 - 1.0 mg/dL) 0.7 AST (15 - 37 U/L) 11 ALT (12 - 78 U/L) 17 Alkaline Phosphatase (46 - 116 U/L) 79 Total Protein (6.4 - 8.2 g/dL) 8.5 Albumin (3.3 - 5.0 g/dL) 3.7 Procalcitonin (0 - 0.5 ng/mL) < 0.05 Hematology WBC (4.5 - 11.5 K/uL) 26.2 RBC (4.50 - 5.90 M/uL) 5.10 Hgb (13.5 - 17.5 gm/dL) 16.1 Hct (41.0 - 53.0 %) 47.7 MCV (80 - 100 fL) 93 MCH (26 - 34 pg) 32 RDW (11.6 - 14.8 %) 13.3 Neut % (Auto) (50 - 75 %) 77 Lymph % (Auto) (25 - 40 %) 14 [place] % (Auto) (3 - 14 %) 6 Eos % (Auto) (0 - 4 %) 1 Baso % (Auto) (0 - 2 %) 0 Band Neutrophils % (0 - 8 %) 2 Metamyelocytes % (0 - 1 %) 0 Myelocytes (0 - 1 %) 0 Other Cell Type 0 Plt Count, EDTA (150 - 400 K/uL) 404 RBC Morphology NORMAL PUBS MCHC (31 - 37 g/dL) 34 Assessment and Plan Problem List 1. Peritonsillar abscess Status Acute Onset Date Unknown Plan -Patient with findings of left-sided peritonsillar abscess -Dr. Henri Gan consulted -Patient underwent incision and drainage of left-sided peritonsillar abscess by Dr. Gan in the emergency department -Dr. Gan stated patient can be safely discharged home with outpatient follow -up with him. Recommends clindamycin and prednisone taper. -Selina STEELE will arrange for antimicrobial therapy and prednisone taper. -Patient status much improved status post drainage of left-sided peritonsillar abscess. -Follow per Dr. Henri Gan's recommendations Current status: Fair, improved Anticipated discharge date: Today from emergency department Anticipated discharge placement: Home Patient care time: Time spent in chart review, patient interview, physical exam, and care documentation: 45 minutes Visit to patient today: 1 Complexity of care: Moderate E&M Codes Outpatient Consult: Comp-Moderate/[id number]
--- NOTE | 2016-11-02 14:45 | ED MED RECONCILIATION SUMMARY ---
Patient: DESEAN SALAS Medication Reconciliation Report [facility] VisitID: [id number] [place] [address] 30y, M Registration Date/Time: 11/01/2016 Weight: 104.3 kg Height/Length: 75 in. BMI: 28.7 ALLERGIES: Penicillins The patient's Home Medications are listed below: NONE. The source(s) of the original Home Medication information: Not obtained. The following Medications were given to the patient in the Emergency Department: IV NS IV Fluids bolus 0, then 1000 mL/hr, administered: 11/01/2016 7:50:00 PM Decadron [IVP] IVP 20 mg, administered: 11/01/2016 7:58:00 PM Clindamycin [IVPB] IVPB bolus 0, then 900 mg 50 mL/hr, administered: 11/01/2016 7:59:00 PM IV NS IV Fluids bolus 0, then 1000 mL/hr, administered: 11/01/2016 8:32:00 PM Toradol [IVP] IVP 30 mg, administered: 11/01/2016 9:00:00 PM Dilaudid [IVP] IVP 1 mg, administered: 11/01/2016 9:00:00 PM The following Medications were prescribed to the patient: Zofran 4 mg: Take 1 orally every six hours as needed for nausea/vomiting. Dispense ten (10). No refills. Substitution is permissible. -- Selina Marin A.R.N.P. Prednisone 20 mg: for 10 days. Dispense sufficient quantity. No refills.(60mg day 1-3, 40mg day 4-6, 20mg day 7,8,9&10) -- Selina Marin A.R.N.P. Cleocin 300 mg: take 1 capsule orally every 6 hours for 7 days. No refills. Substitution is permissible. -- Selina Marin A.R.N.P. [place] 5 mg / 325 mg tablets: take 1 orally every 6 hours as needed for pain. Dispense thirty (30). No refill. -- Selina Marin A.R.N.P. Motrin 600 mg tablets: take 1 tablet orally every 6 hours as needed for pain or fever. Dispense thirty (30). No refill. -- Selina Marin A.R.N.P.
--- NOTE | 2016-11-02 14:45 | ED MAR SUMMARY ---
..... Medication Administration Record [facility] [address] [place] [address] Patient: DESEAN SALAS Visit ID: [id number] 30y, M Weight: 104.3 kg Height/Length: 75 in BMI: 28.7 ALLERGIES: Penicillins Start 19:50 11/01/2016 Rhonda Walker., Stop 20:31 11/01/2016 Kimberyl Palacio R.N. Medication Administered: IV NS (SALINE), Dose: IV Fluids over 1 hour(s), Rate: 1000 mL/hr, Dispensed: 1000 mL bag, Site: #1 left AC. Medication Ordered: IV NS : initial bolus 1000 mL (1000 mL/hr), then none - (NOW). Given 19:58 11/01/2016 Shanae WalkerN. Medication Administered: DECADRON [IVP], Dose: 20 mg IVP over 2 minute(s), Site: #1 left AC. Medication Ordered: Decadron IV 20mg (NOW). Start 19:59 11/01/2016 Rhonda Walker., Stop 20:33 11/01/2016 Shanae WalkerN. Medication Administered: CLINDAMYCIN [IVPB], Dose: 900 mg IVPB over 30 minute(s), Rate: 50 mL/hr, Site: #1 left AC. Medication Ordered: Clindamycin IV 900 mg/50mL (NOW). Start 20:32 11/01/2016 Rhonda Walker., Stop 20:59 11/01/2016 Harvey Walker.N. Medication Administered: IV NS (SALINE), Dose: IV Fluids over 1 hour(s), Rate: 1000 mL/hr, Dispensed: 1000 mL bag, Site: #1 left AC. Medication Ordered: IV NS : initial bolus 1000 mL (1000 mL/hr), then none - (NOW). Given :00 11/01/2016 Shanae WalkerN. Medication Administered: TORADOL [IVP], Dose: 30 mg IVP over 2 minute(s), Site: #1 left AC. Medication Ordered: Toradol IV 30 mg (NOW). Given 21:00 11/01/2016 Lakshmi Walker Medication Administered: DILAUDID [IVP] (HYDROMORPHONE HCL PF), Dose: 1 mg IVP, Site: #1 left AC. Medication Ordered: Dilaudid IV 1 mg (HIGH ALERT MEDICATION, NOW).
--- NOTE | 2016-11-02 14:45 | ED DISCHARGE INSTRUCTIONS ---
Patient: DESEAN SALAS General Instructions [facility] VisitID: [id number] [address] [place] [address] 30y, M Registration Date/Time: 11/01/2016 Left peritonsillar abscess with airway obstruction. INSTRUCTIONS Alternate Tylenol (Acetaminophen) and Motrin (Ibuprofen) for fever, temperature greater than 101 degrees orally. Take according to label instructions. Drink plenty of fluids. Warnings: GENERAL WARNINGS: Return or contact your physician immediately if your condition worsens or changes unexpectedly, if not improving as expected, or if other problems arise. Specifically return if problem worsens. Prescription Medications: Zofran 4 mg: Take 1 orally every six hours as needed for nausea/vomiting. Dispense ten (10). No refills. Substitution is permissible. Prednisone 20 mg: for 10 days. Dispense sufficient quantity. No refills. (60mg day 1-3, 40mg day 4-6, 20mg day 7,8,9&10) Cleocin 300 mg: take 1 capsule orally every 6 hours for 7 days. No refills. Substitution is permissible. [place] 5 mg / 325 mg tablets: take 1 orally every 6 hours as needed for pain. Dispense thirty (30). No refill. Motrin 600 mg tablets: take 1 tablet orally every 6 hours as needed for pain or fever. Dispense thirty (30). No refill. Understanding of the discharge instructions verbalized by patient. Follow-up with: Henri Gan MD, ENT, , [facility], [address] [place] [address], [phone] Follow up even if well. Call for an appointment. Summary of care provided to patient and family. ADDITIONAL INFORMATION Fever Control (Adult) A fever is a natural reaction of the body to an illness. In most cases, the temperature itself is not harmful. It actually helps the body fight infections. A fever does not need to be treated unless you feel very uncomfortable. Home Care If you feel warm, check your temperature. If you feel very uncomfortable and your temperature is at or higher than 100.4F (38C) oral, you may take acetaminophen (Tylenol) every 4 to 6 hours. If you cant take or keep down oral medicine, ask your pharmacist for Tylenol suppositories, which you can get without a prescription. If the fever does not respond to acetaminophen within 1 hour, take ibuprofen (Advil or Motrin). If this works, keep taking the ibuprofen every 6 to 8 hours. Note: If you have chronic liver or kidney disease or ever had a stomach ulcer or GI bleeding, talk with your doctor before using these medications. If either medication alone does not keep the fever down, you may alternate the two medicines every 3 to 4 hours, only if your healthcare provider has instructed you to do so. For example, take Motrin then wait 3 hours, take Tylenol then wait 3 hours, take Motrin, and so on. Follow your healthcare providers instructions exactly. Clothing: Keep clothing light because excess body heat is lost through the skin. The fever will go up if you wear extra layers or wrap in blankets. Fluids: Fever causes the body to lose water through evaporation. Drink plenty of fluids such as water, juice, clear sodas, diane nehal, or lemonade. Do not use aspirin in anyone under 18 years of age who is ill with a fever. It can cause severe liver damage. Follow Up with your doctor or as advised by our staff if you do not get better after 48 hours. Get Prompt Medical Attention if any of the following occur: Fever does not get better after taking fever medication Fast or difficult breathing Earache, sinus pain, stiff or painful neck, headache, repeated diarrhea or vomiting You feel unusually irritable, drowsy, or confused A rash appears You feel weak or dizzy, or that you might faint Ondansetron Oral disintegrating tablet What is this medicine? ONDANSETRON (on MUMTAZ se rey) is used to treat nausea and vomiting caused by chemotherapy. It is also used to prevent or treat nausea and vomiting after surgery. How should I use this medicine? These tablets are made to dissolve in the mouth. Do not try to push the tablet through the foil backing. With dry hands, peel away the foil backing and gently remove the tablet. Place the tablet in the mouth and allow it to dissolve, then swallow. While you may take these tablets with water, it is not necessary to do so. Talk to your microsoft bi architect regarding the use of this medicine in children. Special care may be needed. What side effects may I notice from receiving this medicine? Side effects that you should report to your doctor or health clinical manager home care as soon as possible: allergic reactions like skin rash, itching or hives, swelling of the face, lips, or tongue breathing problems dizziness fast or irregular heartbeat feeling faint or lightheaded, falls fever and chills swelling of the hands and feet tightness in the chest Side effects that usually do not require medical attention (report to your doctor or health clinical manager home care if they continue or are bothersome): constipation or diarrhea headache What may interact with this medicine? Do not take this medicine with any of the following medications: -apomorphine -cisapride -dofetilide -dronedarone -pimozide -thioridazine -ziprasidone This medicine may also interact with the following medications: -carbamazepine -phenytoin -rifampicin -tramadol -other medicines that prolong the QT interval (cause an abnormal heart rhythm) What if I miss a dose? If you miss a dose, take it as soon as you can. If it is almost time for your next dose, take only that dose. Do not take double or extra doses. Where should I keep my medicine? Keep out of the reach of children. Store between 2 and 30 degrees C (36 and 86 degrees F). Throw away any unused medicine after the expiration date. What should I tell my health care provider before I take this medicine? They need to know if you have any of these conditions: heart disease history of irregular heartbeat liver disease low levels of magnesium or potassium in the blood an unusual or allergic reaction to ondansetron, granisetron, other medicines, foods, dyes, or preservatives or trying to get breast-feeding What should I watch for while using this medicine? Check with your doctor or health clinical manager home care as soon as you can if you have any sign of an allergic reaction. Prednisone Oral tablet What is this medicine? PREDNISONE (PRED ni sone) is a corticosteroid. It is commonly used to treat inflammation of the skin, joints, lungs, and other organs. Common conditions treated include asthma, allergies, and arthritis. It is also used for other conditions, such as blood disorders and diseases of the adrenal glands. How should I use this medicine? Take this medicine by mouth with a glass of water. Follow the directions on the prescription label. Take this medicine with food. If you are taking this medicine once a day, take it in the morning. Do not take more medicine than you are told to take. Do not suddenly stop taking your medicine because you may develop a severe reaction. Your doctor will tell you how much medicine to take. If your doctor wants you to stop the medicine, the dose may be slowly lowered over time to avoid any side effects. Talk to your microsoft bi architect regarding the use of this medicine in children. Special care may be needed. What side effects may I notice from receiving this medicine? Side effects that you should report to your doctor or health clinical manager home care as soon as possible: allergic reactions like skin rash, itching or hives, swelling of the face, lips, or tongue changes in emotions or moods changes in vision depressed mood eye pain fever or chills, cough, sore throat, pain or difficulty passing urine increased thirst swelling of ankles, feet Side effects that usually do not require medical attention (report to your doctor or health clinical manager home care if they continue or are bothersome): confusion, excitement, restlessness headache nausea, vomiting skin problems, acne, thin and shiny skin trouble sleeping weight gain What may interact with this medicine? Do not take this medicine with any of the following medications: metyrapone mifepristone This medicine may also interact with the following medications: aminoglutethimide amphotericin B aspirin and aspirin-like medicines barbiturates certain medicines for diabetes, like glipizide or glyburide cholestyramine cholinesterase inhibitors cyclosporine digoxin diuretics ephedrine female hormones, like estrogens and control pills isoniazid ketoconazole NSAIDS, medicines for pain and inflammation, like ibuprofen or naproxen phenytoin rifampin toxoids vaccines warfarin What if I miss a dose? If you miss a dose, take it as soon as you can. If it is almost time for your next dose, talk to your doctor or health clinical manager home care. You may need to miss a dose or take an extra dose. Do not take double or extra doses without advice. Where should I keep my medicine? Keep out of the reach of children. Store at room temperature between 15 and 30 degrees C (59 and 86 degrees F). Protect from light. Keep container tightly closed. Throw away any unused medicine after the expiration date. What should I tell my health care provider before I take this medicine? They need to know if you have any of these conditions: Sneha's syndrome diabetes glaucoma heart disease high blood pressure infection (especially a virus infection such as chickenpox, cold sores, or herpes) kidney disease liver disease mental illness myasthenia gravis osteoporosis seizures stomach or intestine problems thyroid disease an unusual or allergic reaction to lactose, prednisone, other medicines, foods, dyes, or preservatives or trying to get breast-feeding What should I watch for while using this medicine? Visit your doctor or health clinical manager home care for regular checks on your progress. If you are taking this medicine over a prolonged period, carry an identification card with your name and address, the type and dose of your medicine, and your doctor's name and address. This medicine may increase your risk of getting an infection. Tell your doctor or health clinical manager home care if you are around anyone with measles or chickenpox, or if you develop sores or blisters that do not heal properly. If you are going to have surgery, tell your doctor or health clinical manager home care that you have taken this medicine within the last twelve months. Ask your doctor or health clinical manager home care about your diet. You may need to lower the amount of salt you eat. This medicine may affect blood sugar levels. If you have diabetes, check with your doctor or health clinical manager home care before you change your diet or the dose of your diabetic medicine. Clindamycin Hydrochloride Oral capsule What is this medicine? CLINDAMYCIN (LAKESHAIN elsie GEOGRE sin) is a lincosamide antibiotic. It is used to treat certain kinds of bacterial infections. It will not work for colds, flu, or other viral infections. How should I use this medicine? Take this medicine by mouth with a full glass of water. Follow the directions on the prescription label. You can take this medicine with food or on an empty stomach. If the medicine upsets your stomach, take it with food. Take your medicine at regular intervals. Do not take your medicine more often than directed. Take all of your medicine as directed even if you think your are better. Do not skip doses or stop your medicine early. Talk to your microsoft bi architect regarding the use of this medicine in children. Special care may be needed. What side effects may I notice from receiving this medicine? Side effects that you should report to your doctor or health clinical manager home care as soon as possible: allergic reactions like skin rash, itching or hives, swelling of the face, lips, or tongue dark urine pain on swallowing redness, blistering, peeling or loosening of the skin, including inside the mouth unusual bleeding or bruising unusually weak or tired yellowing of eyes or skin Side effects that usually do not require medical attention (report to your doctor or health clinical manager home care if they continue or are bothersome): diarrhea itching in the rectal or genital area joint pain nausea, vomiting stomach pain What may interact with this medicine? chloramphenicol erythromycin kaolin products What if I miss a dose? If you miss a dose, take it as soon as you can. If it is almost time for your next dose, take only that dose. Do not take double or extra doses. Where should I keep my medicine? Keep out of the reach of children. Store at room temperature between 20 and 25 degrees C (68 and 77 degrees F). Throw away any unused medicine after the expiration date. What should I tell my health care provider before I take this medicine? They need to know if you have any of these conditions: kidney disease liver disease stomach problems like colitis an unusual or allergic reaction to clindamycin, lincomycin, or other medicines, foods, dyes like tartrazine or preservatives or trying to get breast-feeding What should I watch for while using this medicine? Tell your doctor or healthcare professional if your symptoms do not start to get better or if they get worse. Do not treat diarrhea with over the counter products. Contact your doctor if you have diarrhea that lasts more than 2 days or if it is severe and watery. Hydrocodone Bitartrate, Acetaminophen Oral tablet What is this medicine? ACETAMINOPHEN; HYDROCODONE (a set a JAKE kasandra fen; norm droe KOE done) is a pain reliever. It is used to treat mild to moderate pain. How should I use this medicine? Take this medicine by mouth. Swallow it with a full glass of water. Follow the directions on the prescription label. If the medicine upsets your stomach, take the medicine with food or milk. Do not take more than you are told to take. Talk to your microsoft bi architect regarding the use of this medicine in children. This medicine is not approved for use in children. What side effects may I notice from receiving this medicine? Side effects that you should report to your doctor or health clinical manager home care as soon as possible: allergic reactions like skin rash, itching or hives, swelling of the face, lips, or tongue breathing problems confusion feeling faint or lightheaded, falls stomach pain yellowing of the eyes or skin Side effects that usually do not require medical attention (report to your doctor or health clinical manager home care if they continue or are bothersome): nausea, vomiting stomach upset What may interact with this medicine? alcohol antihistamines isoniazid medicines for depression, anxiety, or psychotic disturbances medicines for sleep muscle relaxants naltrexone narcotic medicines (opiates) for pain phenobarbital ritonavir tramadol What if I miss a dose? If you miss a dose, take it as soon as you can. If it is almost time for your next dose, take only that dose. Do not take double or extra doses. Where should I keep my medicine? Keep out of the reach of children. This medicine can be abused. Keep your medicine in a safe place to protect it from theft. Do not share this medicine with anyone. Selling or giving away this medicine is dangerous and against the law. Store at room temperature between 15 and 30 degrees C (59 and 86 degrees F). Protect from light. Keep container tightly closed. Throw away any unused medicine after the expiration date. Discard unused medicine and used packaging carefully. Pets and children can be harmed if they find used or lost packages. What should I tell my health care provider before I take this medicine? They need to know if you have any of these conditions: brain tumor Crohn's disease, inflammatory bowel disease, or ulcerative colitis drink more than 3 alcohol-containing drinks per day drug abuse or addiction head injury heart or circulation problems kidney disease or problems going to the bathroom liver disease lung disease, asthma, or breathing problems an unusual or allergic reaction to acetaminophen, hydrocodone, other opioid analgesics, other medicines, foods, dyes, or preservatives or trying to get breast-feeding What should I watch for while using this medicine? Tell your doctor or health clinical manager home care if your pain does not go away, if it gets worse, or if you have new or a different type of pain. You may develop tolerance to the medicine. Tolerance means that you will need a higher dose of the medicine for pain relief. Tolerance is normal and is expected if you take the medicine for a long time. Do not suddenly stop taking your medicine because you may develop a severe reaction. Your body becomes used to the medicine. This does NOT mean you are addicted. Addiction is a behavior related to getting and using a drug for a non-medical reason. If you have pain, you have a medical reason to take pain medicine. Your doctor will tell you how much medicine to take. If your doctor wants you to stop the medicine, the dose will be slowly lowered over time to avoid any side effects. You may get drowsy or dizzy when you first start taking the medicine or change doses. Do not drive, use machinery, or do anything that may be dangerous until you know how the medicine affects you. Stand or sit up slowly. There are different types of narcotic medicines (opiates) for pain. If you take more than one type at the same time, you may have more side effects. Give your health care provider a list of all medicines you use. Your doctor will tell you how much medicine to take. Do not take more medicine than directed. Call emergency for help if you have problems breathing. The medicine will cause constipation. Try to have a bowel movement at least every 2 to 3 days. If you do not have a bowel movement for 3 days, call your doctor or health clinical manager home care. Too much acetaminophen can be very dangerous. Do not take Tylenol (acetaminophen) or medicines that contain acetaminophen with this medicine. Many non-prescription medicines contain acetaminophen. Always read the labels carefully. Ibuprofen Oral tablet What is this medicine? IBUPROFEN (eye BYOO proe fen) is a non-steroidal anti-inflammatory drug (NSAID). It is used for dental pain, fever, headaches or migraines, osteoarthritis, rheumatoid arthritis, or painful monthly periods. It can also relieve minor aches and pains caused by a cold, flu, or sore throat. How should I use this medicine? Take this medicine by mouth with a glass of water. Follow the directions on the prescription label. Take this medicine with food if your stomach gets upset. Try to not lie down for at least 10 minutes after you take the medicine. Take your medicine at regular intervals. Do not take your medicine more often than directed. A special MedGuide will be given to you by the pharmacist with each prescription and refill. Be sure to read this information carefully each time. Talk to your microsoft bi architect regarding the use of this medicine in children. Special care may be needed. What side effects may I notice from receiving this medicine? Side effects that you should report to your doctor or health clinical manager home care as soon as possible: allergic reactions like skin rash, itching or hives, swelling of the face, lips, or tongue black or bloody stools, blood in the urine or in vomit breathing problems changes in vision chest pain general ill feeling or flu-like symptoms nausea or vomiting redness, blistering, peeling or loosening of the skin, including inside the mouth slurred speech or weakness on one side of the body stomach pain unexplained weight gain or swelling unusually weak or tired yellowing of eyes or skin Side effects that usually do not require medical attention (report to your doctor or health clinical manager home care if they continue or are bothersome): constipation or diarrhea dizziness gas or heartburn stomach upset What may interact with this medicine? Do not take this medicine with any of the following medications: cidofovir ketorolac methotrexate pemetrexed This medicine may also interact with the following medications: alcohol aspirin diuretics lithium other drugs for inflammation like prednisone warfarin What if I miss a dose? If you miss a dose, take it as soon as you can. If it is almost time for your next dose, take only that dose. Do not take double or extra doses. Where should I keep my medicine? Keep out of the reach of children. Store at room temperature between 15 and 30 degrees C (59 and 86 degrees F). Keep container tightly closed. Throw away any unused medicine after the expiration date. What should I tell my health care provider before I take this medicine? They need to know if you have any of these conditions: asthma cigarette smoker drink more than 3 alcohol containing drinks a day heart disease or circulation problems such as heart failure or leg edema (fluid retention) high blood pressure kidney disease liver disease stomach bleeding or ulcers an unusual or allergic reaction to ibuprofen, aspirin, other NSAIDS, other medicines, foods, dyes, or preservatives or trying to get breast-feeding What should I watch for while using this medicine? Tell your doctor or healthcare professional if your symptoms do not start to get better or if they get worse. This medicine does not prevent heart attack or stroke. In fact, this medicine may increase the chance of a heart attack or stroke. The chance may increase with longer use of this medicine and in people who have heart disease. If you take aspirin to prevent heart attack or stroke, talk with your doctor or health clinical manager home care. Do not take other medicines that contain aspirin, ibuprofen, or naproxen with this medicine. Side effects such as stomach upset, nausea, or ulcers may be more likely to occur. Many medicines available without a prescription should not be taken with this medicine. This medicine can cause ulcers and bleeding in the stomach and intestines at any time during treatment. Ulcers and bleeding can happen without warning symptoms and can cause . To reduce your risk, do not smoke cigarettes or drink alcohol while you are taking this medicine. You may get drowsy or dizzy. Do not drive, use machinery, or do anything that needs mental alertness until you know how this medicine affects you. Do not stand or sit up quickly, especially if you are an older patient. This reduces the risk of dizzy or fainting spells. This medicine can cause you to bleed more easily. Try to avoid damage to your teeth and gums when you brush or floss your teeth. You have been given the following additional information: Fever Control (Adult) Ondansetron Oral disintegrating tablet Prednisone Oral tablet Clindamycin Hydrochloride Oral capsule Hydrocodone Bitartrate, Acetaminophen Oral tablet Ibuprofen Oral tablet (Electronically signed by Selina Marin A.R.N.P. 11/02/2016 14:44)
--- NOTE | 2016-11-02 14:45 | ED DISCHARGE INSTRUCTIONS ---
Patient: DESEAN SALAS General Instructions [facility] VisitID: [id number] [address] [place] [address] 30y, M Registration Date/Time: 11/01/2016 Left peritonsillar abscess with airway obstruction. INSTRUCTIONS Alternate Tylenol (Acetaminophen) and Motrin (Ibuprofen) for fever, temperature greater than 101 degrees orally. Take according to label instructions. Drink plenty of fluids. Warnings: GENERAL WARNINGS: Return or contact your physician immediately if your condition worsens or changes unexpectedly, if not improving as expected, or if other problems arise. Specifically return if problem worsens. Prescription Medications: Zofran 4 mg: Take 1 orally every six hours as needed for nausea/vomiting. Dispense ten (10). No refills. Substitution is permissible. Prednisone 20 mg: for 10 days. Dispense sufficient quantity. No refills. (60mg day 1-3, 40mg day 4-6, 20mg day 7,8,9&10) Cleocin 300 mg: take 1 capsule orally every 6 hours for 7 days. No refills. Substitution is permissible. [place] 5 mg / 325 mg tablets: take 1 orally every 6 hours as needed for pain. Dispense thirty (30). No refill. Motrin 600 mg tablets: take 1 tablet orally every 6 hours as needed for pain or fever. Dispense thirty (30). No refill. Understanding of the discharge instructions verbalized by patient. Follow-up with: Henri Gan MD, ENT, , [facility], [address] [place] [address], [id number] Follow up even if well. Call for an appointment. Summary of care provided to patient and family. ADDITIONAL INFORMATION Fever Control (Adult) A fever is a natural reaction of the body to an illness. In most cases, the temperature itself is not harmful. It actually helps the body fight infections. A fever does not need to be treated unless you feel very uncomfortable. Home Care If you feel warm, check your temperature. If you feel very uncomfortable and your temperature is at or higher than 100.4F (38C) oral, you may take acetaminophen (Tylenol) every 4 to 6 hours. If you cant take or keep down oral medicine, ask your pharmacist for Tylenol suppositories, which you can get without a prescription. If the fever does not respond to acetaminophen within 1 hour, take ibuprofen (Advil or Motrin). If this works, keep taking the ibuprofen every 6 to 8 hours. Note: If you have chronic liver or kidney disease or ever had a stomach ulcer or GI bleeding, talk with your doctor before using these medications. If either medication alone does not keep the fever down, you may alternate the two medicines every 3 to 4 hours, only if your healthcare provider has instructed you to do so. For example, take Motrin then wait 3 hours, take Tylenol then wait 3 hours, take Motrin, and so on. Follow your healthcare providers instructions exactly. Clothing: Keep clothing light because excess body heat is lost through the skin. The fever will go up if you wear extra layers or wrap in blankets. Fluids: Fever causes the body to lose water through evaporation. Drink plenty of fluids such as water, juice, clear sodas, diane nehal, or lemonade. Do not use aspirin in anyone under 18 years of age who is ill with a fever. It can cause severe liver damage. Follow Up with your doctor or as advised by our staff if you do not get better after 48 hours. Get Prompt Medical Attention if any of the following occur: Fever does not get better after taking fever medication Fast or difficult breathing Earache, sinus pain, stiff or painful neck, headache, repeated diarrhea or vomiting You feel unusually irritable, drowsy, or confused A rash appears You feel weak or dizzy, or that you might faint Ondansetron Oral disintegrating tablet What is this medicine? ONDANSETRON (on MUMTAZ se rey) is used to treat nausea and vomiting caused by chemotherapy. It is also used to prevent or treat nausea and vomiting after surgery. How should I use this medicine? These tablets are made to dissolve in the mouth. Do not try to push the tablet through the foil backing. With dry hands, peel away the foil backing and gently remove the tablet. Place the tablet in the mouth and allow it to dissolve, then swallow. While you may take these tablets with water, it is not necessary to do so. Talk to your confidential secretary regarding the use of this medicine in children. Special care may be needed. What side effects may I notice from receiving this medicine? Side effects that you should report to your doctor or health healthcare advisory services manager as soon as possible: allergic reactions like skin rash, itching or hives, swelling of the face, lips, or tongue breathing problems dizziness fast or irregular heartbeat feeling faint or lightheaded, falls fever and chills swelling of the hands and feet tightness in the chest Side effects that usually do not require medical attention (report to your doctor or health healthcare advisory services manager if they continue or are bothersome): constipation or diarrhea headache What may interact with this medicine? Do not take this medicine with any of the following medications: -apomorphine -cisapride -dofetilide -dronedarone -pimozide -thioridazine -ziprasidone This medicine may also interact with the following medications: -carbamazepine -phenytoin -rifampicin -tramadol -other medicines that prolong the QT interval (cause an abnormal heart rhythm) What if I miss a dose? If you miss a dose, take it as soon as you can. If it is almost time for your next dose, take only that dose. Do not take double or extra doses. Where should I keep my medicine? Keep out of the reach of children. Store between 2 and 30 degrees C (36 and 86 degrees F). Throw away any unused medicine after the expiration date. What should I tell my health care provider before I take this medicine? They need to know if you have any of these conditions: heart disease history of irregular heartbeat liver disease low levels of magnesium or potassium in the blood an unusual or allergic reaction to ondansetron, granisetron, other medicines, foods, dyes, or preservatives or trying to get breast-feeding What should I watch for while using this medicine? Check with your doctor or health healthcare advisory services manager as soon as you can if you have any sign of an allergic reaction. Prednisone Oral tablet What is this medicine? PREDNISONE (PRED ni sone) is a corticosteroid. It is commonly used to treat inflammation of the skin, joints, lungs, and other organs. Common conditions treated include asthma, allergies, and arthritis. It is also used for other conditions, such as blood disorders and diseases of the adrenal glands. How should I use this medicine? Take this medicine by mouth with a glass of water. Follow the directions on the prescription label. Take this medicine with food. If you are taking this medicine once a day, take it in the morning. Do not take more medicine than you are told to take. Do not suddenly stop taking your medicine because you may develop a severe reaction. Your doctor will tell you how much medicine to take. If your doctor wants you to stop the medicine, the dose may be slowly lowered over time to avoid any side effects. Talk to your confidential secretary regarding the use of this medicine in children. Special care may be needed. What side effects may I notice from receiving this medicine? Side effects that you should report to your doctor or health healthcare advisory services manager as soon as possible: allergic reactions like skin rash, itching or hives, swelling of the face, lips, or tongue changes in emotions or moods changes in vision depressed mood eye pain fever or chills, cough, sore throat, pain or difficulty passing urine increased thirst swelling of ankles, feet Side effects that usually do not require medical attention (report to your doctor or health healthcare advisory services manager if they continue or are bothersome): confusion, excitement, restlessness headache nausea, vomiting skin problems, acne, thin and shiny skin trouble sleeping weight gain What may interact with this medicine? Do not take this medicine with any of the following medications: metyrapone mifepristone This medicine may also interact with the following medications: aminoglutethimide amphotericin B aspirin and aspirin-like medicines barbiturates certain medicines for diabetes, like glipizide or glyburide cholestyramine cholinesterase inhibitors cyclosporine digoxin diuretics ephedrine female hormones, like estrogens and control pills isoniazid ketoconazole NSAIDS, medicines for pain and inflammation, like ibuprofen or naproxen phenytoin rifampin toxoids vaccines warfarin What if I miss a dose? If you miss a dose, take it as soon as you can. If it is almost time for your next dose, talk to your doctor or health healthcare advisory services manager. You may need to miss a dose or take an extra dose. Do not take double or extra doses without advice. Where should I keep my medicine? Keep out of the reach of children. Store at room temperature between 15 and 30 degrees C (59 and 86 degrees F). Protect from light. Keep container tightly closed. Throw away any unused medicine after the expiration date. What should I tell my health care provider before I take this medicine? They need to know if you have any of these conditions: Sneha's syndrome diabetes glaucoma heart disease high blood pressure infection (especially a virus infection such as chickenpox, cold sores, or herpes) kidney disease liver disease mental illness myasthenia gravis osteoporosis seizures stomach or intestine problems thyroid disease an unusual or allergic reaction to lactose, prednisone, other medicines, foods, dyes, or preservatives or trying to get breast-feeding What should I watch for while using this medicine? Visit your doctor or health healthcare advisory services manager for regular checks on your progress. If you are taking this medicine over a prolonged period, carry an identification card with your name and address, the type and dose of your medicine, and your doctor's name and address. This medicine may increase your risk of getting an infection. Tell your doctor or health healthcare advisory services manager if you are around anyone with measles or chickenpox, or if you develop sores or blisters that do not heal properly. If you are going to have surgery, tell your doctor or health healthcare advisory services manager that you have taken this medicine within the last twelve months. Ask your doctor or health healthcare advisory services manager about your diet. You may need to lower the amount of salt you eat. This medicine may affect blood sugar levels. If you have diabetes, check with your doctor or health healthcare advisory services manager before you change your diet or the dose of your diabetic medicine. Clindamycin Hydrochloride Oral capsule What is this medicine? CLINDAMYCIN (LAKESHAIN elsie GEORGE sin) is a lincosamide antibiotic. It is used to treat certain kinds of bacterial infections. It will not work for colds, flu, or other viral infections. How should I use this medicine? Take this medicine by mouth with a full glass of water. Follow the directions on the prescription label. You can take this medicine with food or on an empty stomach. If the medicine upsets your stomach, take it with food. Take your medicine at regular intervals. Do not take your medicine more often than directed. Take all of your medicine as directed even if you think your are better. Do not skip doses or stop your medicine early. Talk to your confidential secretary regarding the use of this medicine in children. Special care may be needed. What side effects may I notice from receiving this medicine? Side effects that you should report to your doctor or health healthcare advisory services manager as soon as possible: allergic reactions like skin rash, itching or hives, swelling of the face, lips, or tongue dark urine pain on swallowing redness, blistering, peeling or loosening of the skin, including inside the mouth unusual bleeding or bruising unusually weak or tired yellowing of eyes or skin Side effects that usually do not require medical attention (report to your doctor or health healthcare advisory services manager if they continue or are bothersome): diarrhea itching in the rectal or genital area joint pain nausea, vomiting stomach pain What may interact with this medicine? chloramphenicol erythromycin kaolin products What if I miss a dose? If you miss a dose, take it as soon as you can. If it is almost time for your next dose, take only that dose. Do not take double or extra doses. Where should I keep my medicine? Keep out of the reach of children. Store at room temperature between 20 and 25 degrees C (68 and 77 degrees F). Throw away any unused medicine after the expiration date. What should I tell my health care provider before I take this medicine? They need to know if you have any of these conditions: kidney disease liver disease stomach problems like colitis an unusual or allergic reaction to clindamycin, lincomycin, or other medicines, foods, dyes like tartrazine or preservatives or trying to get breast-feeding What should I watch for while using this medicine? Tell your doctor or healthcare professional if your symptoms do not start to get better or if they get worse. Do not treat diarrhea with over the counter products. Contact your doctor if you have diarrhea that lasts more than 2 days or if it is severe and watery. Hydrocodone Bitartrate, Acetaminophen Oral tablet What is this medicine? ACETAMINOPHEN; HYDROCODONE (a set a JAKE kasandra fen; norm droe KOE done) is a pain reliever. It is used to treat mild to moderate pain. How should I use this medicine? Take this medicine by mouth. Swallow it with a full glass of water. Follow the directions on the prescription label. If the medicine upsets your stomach, take the medicine with food or milk. Do not take more than you are told to take. Talk to your confidential secretary regarding the use of this medicine in children. This medicine is not approved for use in children. What side effects may I notice from receiving this medicine? Side effects that you should report to your doctor or health healthcare advisory services manager as soon as possible: allergic reactions like skin rash, itching or hives, swelling of the face, lips, or tongue breathing problems confusion feeling faint or lightheaded, falls stomach pain yellowing of the eyes or skin Side effects that usually do not require medical attention (report to your doctor or health healthcare advisory services manager if they continue or are bothersome): nausea, vomiting stomach upset What may interact with this medicine? alcohol antihistamines isoniazid medicines for depression, anxiety, or psychotic disturbances medicines for sleep muscle relaxants naltrexone narcotic medicines (opiates) for pain phenobarbital ritonavir tramadol What if I miss a dose? If you miss a dose, take it as soon as you can. If it is almost time for your next dose, take only that dose. Do not take double or extra doses. Where should I keep my medicine? Keep out of the reach of children. This medicine can be abused. Keep your medicine in a safe place to protect it from theft. Do not share this medicine with anyone. Selling or giving away this medicine is dangerous and against the law. Store at room temperature between 15 and 30 degrees C (59 and 86 degrees F). Protect from light. Keep container tightly closed. Throw away any unused medicine after the expiration date. Discard unused medicine and used packaging carefully. Pets and children can be harmed if they find used or lost packages. What should I tell my health care provider before I take this medicine? They need to know if you have any of these conditions: brain tumor Crohn's disease, inflammatory bowel disease, or ulcerative colitis drink more than 3 alcohol-containing drinks per day drug abuse or addiction head injury heart or circulation problems kidney disease or problems going to the bathroom liver disease lung disease, asthma, or breathing problems an unusual or allergic reaction to acetaminophen, hydrocodone, other opioid analgesics, other medicines, foods, dyes, or preservatives or trying to get breast-feeding What should I watch for while using this medicine? Tell your doctor or health healthcare advisory services manager if your pain does not go away, if it gets worse, or if you have new or a different type of pain. You may develop tolerance to the medicine. Tolerance means that you will need a higher dose of the medicine for pain relief. Tolerance is normal and is expected if you take the medicine for a long time. Do not suddenly stop taking your medicine because you may develop a severe reaction. Your body becomes used to the medicine. This does NOT mean you are addicted. Addiction is a behavior related to getting and using a drug for a non-medical reason. If you have pain, you have a medical reason to take pain medicine. Your doctor will tell you how much medicine to take. If your doctor wants you to stop the medicine, the dose will be slowly lowered over time to avoid any side effects. You may get drowsy or dizzy when you first start taking the medicine or change doses. Do not drive, use machinery, or do anything that may be dangerous until you know how the medicine affects you. Stand or sit up slowly. There are different types of narcotic medicines (opiates) for pain. If you take more than one type at the same time, you may have more side effects. Give your health care provider a list of all medicines you use. Your doctor will tell you how much medicine to take. Do not take more medicine than directed. Call emergency for help if you have problems breathing. The medicine will cause constipation. Try to have a bowel movement at least every 2 to 3 days. If you do not have a bowel movement for 3 days, call your doctor or health healthcare advisory services manager. Too much acetaminophen can be very dangerous. Do not take Tylenol (acetaminophen) or medicines that contain acetaminophen with this medicine. Many non-prescription medicines contain acetaminophen. Always read the labels carefully. Ibuprofen Oral tablet What is this medicine? IBUPROFEN (eye BYOO proe fen) is a non-steroidal anti-inflammatory drug (NSAID). It is used for dental pain, fever, headaches or migraines, osteoarthritis, rheumatoid arthritis, or painful monthly periods. It can also relieve minor aches and pains caused by a cold, flu, or sore throat. How should I use this medicine? Take this medicine by mouth with a glass of water. Follow the directions on the prescription label. Take this medicine with food if your stomach gets upset. Try to not lie down for at least 10 minutes after you take the medicine. Take your medicine at regular intervals. Do not take your medicine more often than directed. A special MedGuide will be given to you by the pharmacist with each prescription and refill. Be sure to read this information carefully each time. Talk to your confidential secretary regarding the use of this medicine in children. Special care may be needed. What side effects may I notice from receiving this medicine? Side effects that you should report to your doctor or health healthcare advisory services manager as soon as possible: allergic reactions like skin rash, itching or hives, swelling of the face, lips, or tongue black or bloody stools, blood in the urine or in vomit breathing problems changes in vision chest pain general ill feeling or flu-like symptoms nausea or vomiting redness, blistering, peeling or loosening of the skin, including inside the mouth slurred speech or weakness on one side of the body stomach pain unexplained weight gain or swelling unusually weak or tired yellowing of eyes or skin Side effects that usually do not require medical attention (report to your doctor or health healthcare advisory services manager if they continue or are bothersome): constipation or diarrhea dizziness gas or heartburn stomach upset What may interact with this medicine? Do not take this medicine with any of the following medications: cidofovir ketorolac methotrexate pemetrexed This medicine may also interact with the following medications: alcohol aspirin diuretics lithium other drugs for inflammation like prednisone warfarin What if I miss a dose? If you miss a dose, take it as soon as you can. If it is almost time for your next dose, take only that dose. Do not take double or extra doses. Where should I keep my medicine? Keep out of the reach of children. Store at room temperature between 15 and 30 degrees C (59 and 86 degrees F). Keep container tightly closed. Throw away any unused medicine after the expiration date. What should I tell my health care provider before I take this medicine? They need to know if you have any of these conditions: asthma cigarette smoker drink more than 3 alcohol containing drinks a day heart disease or circulation problems such as heart failure or leg edema (fluid retention) high blood pressure kidney disease liver disease stomach bleeding or ulcers an unusual or allergic reaction to ibuprofen, aspirin, other NSAIDS, other medicines, foods, dyes, or preservatives or trying to get breast-feeding What should I watch for while using this medicine? Tell your doctor or healthcare professional if your symptoms do not start to get better or if they get worse. This medicine does not prevent heart attack or stroke. In fact, this medicine may increase the chance of a heart attack or stroke. The chance may increase with longer use of this medicine and in people who have heart disease. If you take aspirin to prevent heart attack or stroke, talk with your doctor or health healthcare advisory services manager. Do not take other medicines that contain aspirin, ibuprofen, or naproxen with this medicine. Side effects such as stomach upset, nausea, or ulcers may be more likely to occur. Many medicines available without a prescription should not be taken with this medicine. This medicine can cause ulcers and bleeding in the stomach and intestines at any time during treatment. Ulcers and bleeding can happen without warning symptoms and can cause . To reduce your risk, do not smoke cigarettes or drink alcohol while you are taking this medicine. You may get drowsy or dizzy. Do not drive, use machinery, or do anything that needs mental alertness until you know how this medicine affects you. Do not stand or sit up quickly, especially if you are an older patient. This reduces the risk of dizzy or fainting spells. This medicine can cause you to bleed more easily. Try to avoid damage to your teeth and gums when you brush or floss your teeth. You have been given the following additional information: Fever Control (Adult) Ondansetron Oral disintegrating tablet Prednisone Oral tablet Clindamycin Hydrochloride Oral capsule Hydrocodone Bitartrate, Acetaminophen Oral tablet Ibuprofen Oral tablet (Electronically signed by Selina Marin A.R.N.P. 11/02/2016 14:44)
--- NOTE | 2016-11-02 14:45 | ED MED RECONCILIATION SUMMARY ---
Patient: DESEAN SALAS Medication Reconciliation Report [facility] VisitID: [id number] [place] [address] 30y, M Registration Date/Time: 11/01/2016 Weight: 104.3 kg Height/Length: 75 in. BMI: 28.7 ALLERGIES: Penicillins The patient's Home Medications are listed below: NONE. The source(s) of the original Home Medication information: Not obtained. The following Medications were given to the patient in the Emergency Department: IV NS IV Fluids bolus 0, then 1000 mL/hr, administered: 11/01/2016 7:50:00 PM Decadron [IVP] IVP 20 mg, administered: 11/01/2016 7:58:00 PM Clindamycin [IVPB] IVPB bolus 0, then 900 mg 50 mL/hr, administered: 11/01/2016 7:59:00 PM IV NS IV Fluids bolus 0, then 1000 mL/hr, administered: 11/01/2016 8:32:00 PM Toradol [IVP] IVP 30 mg, administered: 11/01/2016 9:00:00 PM Dilaudid [IVP] IVP 1 mg, administered: 11/01/2016 9:00:00 PM The following Medications were prescribed to the patient: Zofran 4 mg: Take 1 orally every six hours as needed for nausea/vomiting. Dispense ten (10). No refills. Substitution is permissible. -- Selina Marin A.R.N.P. Prednisone 20 mg: for 10 days. Dispense sufficient quantity. No refills.(60mg day 1-3, 40mg day 4-6, 20mg day 7,8,9&10) -- Selina Marin A.R.N.P. Cleocin 300 mg: take 1 capsule orally every 6 hours for 7 days. No refills. Substitution is permissible. -- Selina Marin A.R.N.P. [place] 5 mg / 325 mg tablets: take 1 orally every 6 hours as needed for pain. Dispense thirty (30). No refill. -- Selina Marin A.R.N.P. Motrin 600 mg tablets: take 1 tablet orally every 6 hours as needed for pain or fever. Dispense thirty (30). No refill. -- Selina Marin A.R.N.P.
--- NOTE | 2016-11-02 14:45 | ED MAR SUMMARY ---
..... Medication Administration Record [facility] [address] [place] [address] Patient: DESEAN SALAS Visit ID: [id number] 30y, M Weight: 104.3 kg Height/Length: 75 in BMI: 28.7 ALLERGIES: Penicillins Start 19:50 11/01/2016 Rhonda Walker., Stop 20:31 11/01/2016 Kimberly Palacio R.N. Medication Administered: IV NS (SALINE), Dose: IV Fluids over 1 hour(s), Rate: 1000 mL/hr, Dispensed: 1000 mL bag, Site: #1 left AC. Medication Ordered: IV NS : initial bolus 1000 mL (1000 mL/hr), then none - (NOW). Given 19:58 11/01/2016 Shanae WalkerN. Medication Administered: DECADRON [IVP], Dose: 20 mg IVP over 2 minute(s), Site: #1 left AC. Medication Ordered: Decadron IV 20mg (NOW). Start 19:59 11/01/2016 Rhonda Walker., Stop 20:33 11/01/2016 Shanae WalkerN. Medication Administered: CLINDAMYCIN [IVPB], Dose: 900 mg IVPB over 30 minute(s), Rate: 50 mL/hr, Site: #1 left AC. Medication Ordered: Clindamycin IV 900 mg/50mL (NOW). Start 20:32 11/01/2016 Rhonda Walker., Stop 20:59 11/01/2016 Harvey Walker.N. Medication Administered: IV NS (SALINE), Dose: IV Fluids over 1 hour(s), Rate: 1000 mL/hr, Dispensed: 1000 mL bag, Site: #1 left AC. Medication Ordered: IV NS : initial bolus 1000 mL (1000 mL/hr), then none - (NOW). Given :00 11/01/2016 Shanae WalkerN. Medication Administered: TORADOL [IVP], Dose: 30 mg IVP over 2 minute(s), Site: #1 left AC. Medication Ordered: Toradol IV 30 mg (NOW). Given 21:00 11/01/2016 Lakshmi Walker Medication Administered: DILAUDID [IVP] (HYDROMORPHONE HCL PF), Dose: 1 mg IVP, Site: #1 left AC. Medication Ordered: Dilaudid IV 1 mg (HIGH ALERT MEDICATION, NOW).
--- NOTE | 2016-11-09 12:58 | CONSULTATION REPORT ---
DATE OF SERVICE: 11/01/2016 SURGEON: Henri Gan MD HISTORY OF PRESENT ILLNESS: [facility] Emergency Department. A 30-year-old male without prior tonsillitis, has had a sore throat on the left side for 2 days, came to the emergency room, white blood cell count is over 20, 000. On examination, ear, nose and throat is remarkable for a swollen left peritonsillar region with large tonsils, left more than right. IMPRESSION: 1. Left peritonsillar abscess. PREPROCEDURE DIAGNOSIS: 1. Left peritonsillar abscess. POSTPROCEDURE DIAGNOSIS: 1. Left peritonsillar abscess. INDICATIONS: Left peritonsillar abscess. PROCEDURE FINDINGS: Large tonsils, left more than right, swelling of the left soft palate and after incision and drainage, between 5 and 10 mL of satnam pus was recovered. DESCRIPTION OF PROCEDURE: With the patient seated on the table in the emergency department at [facility], November 12 at 10 p.m., the left peritonsillar region was sprayed with Cetacaine spray. Thereafter, 1% Xylocaine with epinephrine was injected into the appropriate level of the soft palate. A 1.5 cm incision was made with a 15 knife blade and with a hemostat, the wound was explored and expanded and satnam purulence was recovered and cultured. The patient tolerated the procedure well and left under his own power without known complications to recheck and follow up in 5 days. PLAN: Incision and drainage of the peritonsillar abscess today. Antibiotics, pain medicines prednisone taper for 8 days, utilizing 40 mg a day for 4 days, 20 mg a day for 4 days. Return to clinic in 1 week and we will followup. Consultation about interval tonsillectomy was held, evaluation of the response: The patient will follow up and our contact information was given, Henri Gan surgeon service of [facility].
== END 2016-11-01 22:50 | disposition home or self-care (01) ==
LOC: ED SRH 18:45 → TRANS SRH 21:38 → ED SRH 21:38
DX: J36 Peritonsillar abscess (principal); J98.8 Other specified respiratory disorders
CPT/HCPCS: 90074; 90100; 91643; 92031; 93004; 95059